=== PATIENT | female | born 1950 | race Caucasian/White ===

== ENCOUNTER 2018-07-15 11:13 | Inpatient (IN) | payer OTHER, MEDICARE ==
[2018-07-15 11:27] VITALS: BMI 23.8
--- NOTE | 2018-07-15 11:28 | PDOC ---
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 She tripped and fell. She states he does not know how it happened because it happened so fast She does note that she struck her head, no LOC, no amnesia Pt was able to crawl to her room where she fell between the bed and the night stand When the aid could not get in, she contacted a family member who called EMS Allergies: None Socal history: Former smoker. No alcohol. No illicit drugs. Surgical history: Appendectomy PMD: Dr. Darren Cervantes 07/15/18 11:54 ROS: GENERAL/CONSTITUTIONAL: No: fever, chills, weakness, loss of appetite. HEAD, EYES, EARS, NOSE AND THROAT: No: change in vision, ear pain, discharge, sore throat, throat swelling. CARDIOVASCULAR: No: chest pain, lightheadedness, palpitations, syncope RESPIRATORY: No: cough, shortness of breath, wheezing, hemoptysis, stridor. GASTROINTESTINAL: No: nausea, vomiting, diarrhea, abdominal cramping, rectal bleeding, constipation. GENITOURINARY: No: dysuria, hematuria, frequency, urgency, flank pain. MUSCULOSKELETAL: Yes: LEFT ANKLE PAIN No: back pain, neck pain, SKIN AND BREASTS: No: lesions, pallor, rash or easy bruising. NEUROLOGIC: No: headache, vertigo, paresthesias, weakness ENDOCRINE: No: unexplained weight gain or loss HEMATOLOGIC/LYMPHATIC: No: anemia, easy bleeding, swelling nodes. PE: GENERAL: The patient is in no acute distress. HEAD: Normal with no signs of trauma. EYES: PERRLA, EOMI, sclera anicteric, conjunctiva clear. ENT: Ears normal, nares patent, oropharynx clear without exudates. Moist mucous membranes. NECK: Normal range of motion, supple without lymphadenopathy, JVD, or masses. LUNGS: Breath sounds equal, clear to auscultation bilaterally. No wheezes, and no crackles. HEART:Regular rate and rhythm, normal S1 and S2 without murmur, rub or gallop. ABDOMEN: Soft, nontender, normoactive bowel sounds. No guarding, no rebound. No masses palpable. EXTREMITIES: bilateral malleolar tenderness, no bruising, no lacerations, minimal swelling 2+ DP, 2+ PT Pt sensation in tact Moving toes with no difficulty NEUROLOGICAL: Cranial nerves II through XII grossly intact. Normal speech. No focal neurological deficits. MUSCULOSKELETAL: Back non-tender to palpation, no CVA tenderness SKIN: Warm, Dry, normal turgor, no rashes or lesions noted. 07/15/18 12:01 07/17/18 08:20 Past History - Past Medical History Allergies/Adverse Reactions: Allergies Allergy/AdvReac Type Severity Reaction Status Date / Time No Known Allergies Allergy Verified 07/15/18 11:29 Home Medications: Ambulatory Orders Olmesartan/Hydrochlorothiazide [Benicar Hct 40-12.5MG Tab] 1 tab PO DAILY COPD: Yes HTN: Yes Liver Disease: Yes (HEP C-TREATED AND TESTS NEGATIVE NOW) - Surgical History Abdominal Surgery: Yes Appendectomy: Yes - Suicide/Smoking/Psychosocial Hx Smoking Status: No Smoking History: Unknown if ever smoked Have you smoked in the past 12 months: No Number of Cigarettes Smoked Daily: 0 Hx Alcohol Use: No Drug/Substance Use Hx: No Substance Use Type: Alcohol *Physical Exam - Vital Signs Last Vital Signs Temp Pulse Resp BP Pulse Ox 97.8 F 88 24 H 108/73 97 07/15/18 11:26 07/15/18 11:26 07/15/18 11:26 07/15/18 11:26 07/15/18 11:26 ED Treatment Course - LABORATORY CBC & Chemistry Diagram: 07/16/18 05:45 07/16/18 05:45 Medical Decision Making - Medical Decision Making 07/15/18 15:50 67 yo F presenting to the ER s/p fall from standing height this morning Left ankle pain Unable to ambulate independently since DD: ankle fracture, dislocation Will do: Labs EKG CT head/C spine Xray Re assess 07/15/18 15:53 Twelve-lead EKG was performed and reviewed by me. There is normal sinus rhythm with a normal rate. The axis is normal. The intervals are normal. There are no ST or T wave abnormalities. Impression: Normal twelve-lead EKG 07/15/18 17:18 Laboratory Tests 07/15/18 07/15/18 13:30 13:30 WBC 9.3 Hgb 12.4 Hct 36.7 Plt Count 250 D BUN 14 Creatinine 1.1 AST 184 H ALT 104 H Creatine Kinase 37 Troponin I < 0.02 Alcohol, Quantitative 205.5 H 07/15/18 17:19 CT head - no acute intracranial hemorrhade CT c spine - degenerative changes, no fracture or dislocation Xray - Proximal fibular fracture, fracture of tibia Case reviewed with Ortho (MEL hanson), recommends splint Splint applied by FREDERICK Rey and I No reduction performed S/p reduction, foot pink warm, moves toes Admitted to Dr Mena Alcohol level >200 Pt is tremulous Ordered for Librium clinical impression: Alcohol abuse Possible early withdrawal Ankle fracture, maisonneuve fracture 07/15/18 17:45 07/17/18 08:20 *DC/Admit/Observation/Transfer Diagnosis at time of Disposition: Alcohol abuse Alcohol withdrawal Qualifiers: Complication of substance-induced condition: uncomplicated Qualified Code(s): F10.230 - Alcohol dependence with withdrawal, uncomplicated Ankle fracture Qualifiers: Encounter type: initial encounter Fracture type: closed Laterality: left Qualified Code(s): S82.892A - Other fracture of left lower leg, initial encounter for closed fracture - Discharge Dispostion Condition at time of disposition: Stable Decision to Admit order: Yes - Referrals - Patient Instructions - Post Discharge Activity
[2018-07-15] MEDS ORDERED: SODIUM CHLORIDE 1,000 ML IV STA (12:10)
[2018-07-15] MEDS ORDERED: ACETAMINOPHEN 1000 MG/100 ML VIAL (NON FORMULARY) IVPB ONE (12:10)
[2018-07-15] MEDS ORDERED: morphine CARPU-JECT 4 MG/1 ML DISP.SYRIN IVPUSH ONE ×2 (12:44→15:31)
[2018-07-15 13:42] LABS: BASO % 0.4 % (0-2.0); EOS % 0.5 % (0-4.5); HEMATOCRIT 36.7 % (32.4-45.2); HEMOGLOBIN 12.4 GM/dL (10.7-15.3); LYMPH % 19.5 % (8-40); MCH 34.3 pg (25.7-33.7); MCHC 33.9 g/dl (32.0-36.0); MEAN CELL VOLUME 101.2 fl (80-96); MEAN PLT VOLUME 7.9 fl (7.5-11.1); MONO % 9.7 % (3.8-10.2); NEUT % 69.9 % (42.8-82.8); PLATELET COUNT 250 K/MM3 (134-434); RBC 3.62 M/mm3 (3.60-5.2); RDW 13.4 % (11.6-15.6); WHITE BLOOD COUNT 9.3 K/mm3 (4.0-10.0)
[2018-07-15 14:06] LABS: ALBUMIN 3.4 g/dl (3.4-5.0); ALK PHOS 74 U/L (45-117); ANION GAP 10 MMOL/L (8-16); BILIRUBIN,TOTAL 0.3 mg/dL (0.2-1); BLOOD UREA NITROGEN 14 mg/dL (7-18); CALCIUM 9.3 mg/dL (8.5-10.1); CHLORIDE 99 mmol/L (98-107); CO2 24 mmol/L (21-32); CREATININE 1.1 mg/dL (0.55-1.3); GLUCOSE,RANDOM 122 mg/dL (74-106); POTASSIUM 4.3 mmol/L (3.5-5.1); SGOT/AST 184 U/L (15-37); SGPT/ALT 104 U/L (13-61); SODIUM 134 mmol/L (136-145); TOT PROT 6.7 g/dl (6.4-8.2)
[2018-07-15] MEDS ORDERED: MORPHINE SULFATE 10 MG/1 ML *VIAL ONE (14:06)
[2018-07-15 14:07] LABS: PROTHROMBIN TIME (PATIENT) 11.8 SEC (9.7-13.0)
[2018-07-15] MEDS ORDERED: chlordiazePOXIDE HCL 25 MG CAPSULE PO ONE (14:25)
[2018-07-15] MEDS ORDERED: THIAMINE HCL 200 MG/2 ML VIAL IVPB ONE (14:29)
[2018-07-15] MEDS ORDERED: FOLIC ACID 1 MG TABLET (FP) PO ONE (14:32)
[2018-07-15] MEDS ORDERED: chlordiazePOXIDE HCL 25 MG CAPSULE ONE (14:40)
[2018-07-15] MEDS ORDERED: ONDANSETRON 4 MG/2 ML VIAL ONE ×2 (15:28→21:49)
[2018-07-15] MEDS ORDERED: ONDANSETRON 4 MG/2 ML VIAL IVPUSH ONE (15:31)
[2018-07-15] MEDS ORDERED: MORPHINE SULFATE 2 MG/ML VIAL ONE ×2 (15:32→22:42)
[2018-07-15] MEDS: D5-1/2NS+10 MEQ KCL - 10 MEQ/1,000 ML INFUS.BAG IV SCH (16:26)
[2018-07-15] MEDS ORDERED: MAG HYDROX/AL HYDROX/SIMETH 30 ML UNIT-DOSE CUP ONE (18:09)
[2018-07-15] MEDS ORDERED: MAG HYDROX/AL HYDROX/SIMETH 30 ML UNIT-DOSE CUP PO ONE (18:15)
[2018-07-15] MEDS ORDERED: LORazepam 2 MG/ML SDV VIAL ONE (18:27)
--- NOTE | 2018-07-15 19:11 | HP ---
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 patient tripped and fell, twisted Left LE developed sever pain , denies any head trauma, LOC, , couldn't walk so crawl to her room where she fell between the bed and the night stand When the aid could not get in, she contacted a family member who called EMS, on arrival alert but tremulous imaging shows spiral fracture proximal fibula and avulsion fracture left TIBIA splint allied, ETOH level elevated so admitted for possible ETOH intoxication/ withdrawal and management of fracture, no c/o chest pain , SOB, Palpitation, neck pain, denies abd pain, nausea or vomiting. History Source: Patient, Family Member - Past Medical History Cardiovascular: Yes: HTN - Smoking History Smoking history: Unknown if ever smoked Have you smoked in the past 12 months: No Aproximately how many cigarettes per day: 0 - Alcohol/Substance Use Hx Alcohol Use: Yes Home Medications - Allergies Allergies/Adverse Reactions: Allergies Allergy/AdvReac Type Severity Reaction Status Date / Time No Known Allergies Allergy Verified 07/15/18 11:29 - Home Medications Home Medications: Ambulatory Orders Olmesartan/Hydrochlorothiazide [Benicar Hct 40-12.5MG Tab] 1 tab PO DAILY Family Disease History - Family Disease History Family History: Unremarkable Review of Systems - Review of Systems Constitutional: denies: Chills, Diaphoresis, Fever, Lethargy, Loss of Appetite Eyes: denies: Blind Spots, Blurred Vision, Double Vision, Eye Pain HENT: denies: Difficult Swallowing, Ear Discharge Neck: denies: Decreased ROM, Lumps, Pain on Movement Cardiovascular: denies: Chest Pain, Edema, Palpitations, Shortness of Breath Respiratory: denies: Cough, Exercise Intolerance, Hemoptysis, Orthopnea Gastrointestinal: denies: Abdominal Pain, Bloating, Constipation Genitourinary: denies: Burning, Discharge, Dysuria Musculoskeletal: reports: Back Pain, Joint Swelling (Left LE) Endocrine: denies: Excessive Sweating, Flushing Pain Intensity: 5 Physical Examination Vital Signs: Vital Signs Temperature 97.4 F L 07/15/18 17:18 Pulse Rate 84 07/15/18 17:18 Respiratory Rate 20 07/15/18 17:18 Blood Pressure 104/62 07/15/18 17:18 O2 Sat by Pulse Oximetry (%) 97 07/15/18 11:26 Elderly F C/O Pain looks sleepy, HEENT: No external trauma, mm moist, no anemia, PERRLA, EOMI NECK; No JVd No Bruit, supple, CHEST: Non tender CTA B/L CVS; S1S2 R no m/g/r ABD: No distention, non tender Bs + EXT: Left Leg is in casra=t, toes sensation and circulation intact, Rt LE no swelling Pulses + CONSUMER ATTORNEY: tremlous, AOx3 non focal. Neurological: Yes: Oriented ...Motor Strength: LLE Labs: CBC, BMP 07/15/18 13:30 07/15/18 13:30 CBC,CMP WBC 9.3 K/mm3 (4.0-10.0) 07/15/18 13:30 RBC 3.62 M/mm3 (3.60-5.2) 07/15/18 13:30 Hgb 12.4 GM/dL (10.7-15.3) 07/15/18 13:30 Hct 36.7 % (32.4-45.2) 07/15/18 13:30 MCV 101.2 fl (80-96) H 07/15/18 13:30 MCH 34.3 pg (25.7-33.7) H 07/15/18 13:30 MCHC 33.9 g/dl (32.0-36.0) 07/15/18 13:30 RDW 13.4 % (11.6-15.6) 07/15/18 13:30 Plt Count 250 K/MM3 (134-434) D 07/15/18 13:30 MPV 7.9 fl (7.5-11.1) 07/15/18 13:30 Absolute Neuts (auto) 6.5 K/mm3 (1.5-8.0) 07/15/18 13:30 Neutrophils % 69.9 % (42.8-82.8) 07/15/18 13:30 Lymphocytes % 19.5 % (8-40) D 07/15/18 13:30 Monocytes % 9.7 % (3.8-10.2) 07/15/18 13:30 Eosinophils % 0.5 % (0-4.5) 07/15/18 13:30 Basophils % 0.4 % (0-2.0) 07/15/18 13:30 Nucleated RBC % 0 % (0-0) 07/15/18 13:30 Sodium 134 mmol/L (136-145) L 07/15/18 13:30 Potassium 4.3 mmol/L (3.5-5.1) 07/15/18 13:30 Chloride 99 mmol/L (98-107) 07/15/18 13:30 Carbon Dioxide 24 mmol/L (21-32) 07/15/18 13:30 Anion Gap 10 MMOL/L (8-16) 07/15/18 13:30 BUN 14 mg/dL (7-18) 07/15/18 13:30 Creatinine 1.1 mg/dL (0.55-1.3) 07/15/18 13:30 Creat Clearance w eGFR 49.39 (>60) 07/15/18 13:30 Random Glucose 122 mg/dL (74-106) H 07/15/18 13:30 Calcium 9.3 mg/dL (8.5-10.1) 07/15/18 13:30 Total Bilirubin 0.3 mg/dL (0.2-1) 07/15/18 13:30 AST 184 U/L (15-37) H 07/15/18 13:30 ALT 104 U/L (13-61) H 07/15/18 13:30 Alkaline Phosphatase 74 U/L (45-117) 07/15/18 13:30 Creatine Kinase 37 IU/L (26-192) 07/15/18 13:30 Troponin I < 0.02 ng/ml (0.00-0.05) 07/15/18 13:30 Total Protein 6.7 g/dl (6.4-8.2) 07/15/18 13:30 Albumin 3.4 g/dl (3.4-5.0) 07/15/18 13:30 Imaging - Results Chest X-ray: Report Reviewed (No infiltrates) Cat Scan: Report Reviewed (No acute changes) EKG: Report Reviewed ([address] chnages QTC 468) Other: Report Reviewed (C Spine: No Fracture Left LE: Left Leg Spiral fracture Left Tibia Avulsion fracture Left Tibiala Lower end) Problem List - Problems (1) Fracture, fibula, proximal Assessment/Plan: In casrat pain control ortho consult Code(s): S82.839A - OTH FRACTURE OF UPPER AND LOWER END OF UNSP FIBULA, INIT Qualifiers: Fracture type: closed Laterality: left (2) Avulsion fracture of lateral condyle of left tibia Assessment/Plan: Imobalised in cast pain control Code(s): S82.122A - DISP FX OF LATERAL CONDYLE OF LEFT TIBIA, INIT FOR CLOS FX Qualifiers: Fracture type: closed (3) Alcohol withdrawal Assessment/Plan: IV hydration, Thiamine, Folic acid Librium kasey col Code(s): F10.239 - ALCOHOL DEPENDENCE WITH WITHDRAWAL, UNSPECIFIED Qualifiers: Complication of substance-induced condition: uncomplicated Qualified Code(s ): F10.230 - Alcohol dependence with withdrawal, uncomplicated (4) Transaminitis Assessment/Plan: F/U LFTS Due to ETOH ause Code(s): R74.0 - NONSPEC ELEV OF LEVELS OF TRANSAMNS & LACTIC ACID DEHYDRGNSE (5) HTN (hypertension) Assessment/Plan: low BP hold CHRISTO Meds Code(s): I10 - ESSENTIAL (PRIMARY) HYPERTENSION (6) Hepatitis C Assessment/Plan: Treated in the past as per patient cured Code(s): B19.20 - UNSPECIFIED VIRAL HEPATITIS C WITHOUT HEPATIC COMA
[2018-07-15] MEDS: ONDANSETRON 4 MG/2 ML VIAL IVPUSH PRN (21:53)
[2018-07-15] MEDS ORDERED: LIDOCAINE 5% TOPICAL PATCH TP ONE (22:30)
[2018-07-15 22:36] LABS: MAGNESIUM 1.1 mg/dL (1.8-2.4)
[2018-07-15] MEDS ORDERED: chlordiazePOXIDE 5 MG CAPSULE ONE (22:42)
[2018-07-15] MEDS ORDERED: LIDOCAINE 5% TOPICAL PATCH ONE (22:43)
[2018-07-15] MEDS: MORPHINE SULFATE 2 MG/ML VIAL IVPUSH PRN (22:54)
--- NOTE | 2018-07-15 23:00 | EKG ---
Test Reason : Blood Pressure : / mmHG Vent. Rate : 085 BPM Atrial Rate : 085 BPM P-R Int : 126 ms QRS Dur : 064 ms QT Int : 394 ms P-R-T Axes : 061 060 061 degrees QTc Int : 468 ms NORMAL SINUS RHYTHM NORMAL ECG WHEN COMPARED WITH ECG OF 24-DEC-2017 17:49, NO SIGNIFICANT CHANGE WAS FOUND Confirmed by ALFONSO BROWN MD ([id number]) on 07/15/2018 10:59:45 PM Referred By: Confirmed By:ALFONSO BROWN MD
[2018-07-16] MEDS: chlordiazePOXIDE HCL 10 MG CAPSULE PO SCH ×2 (00:46→06:06)
[2018-07-16] MEDS ORDERED: chlordiazePOXIDE 5 MG CAPSULE ONE (05:59)
[2018-07-16] MEDS: ONDANSETRON 4 MG/2 ML VIAL IVPUSH PRN (06:05)
[2018-07-16] MEDS: D5-1/2NS+10 MEQ KCL - 10 MEQ/1,000 ML INFUS.BAG IV SCH ×2 (06:05→14:45)
[2018-07-16] MEDS: MORPHINE SULFATE 2 MG/ML VIAL IVPUSH PRN ×4 (06:05→21:14)
[2018-07-16 07:19] LABS: BASO % 0.2 % (0-2.0); HEMATOCRIT 34.1 % (32.4-45.2); HEMOGLOBIN 11.4 GM/dL (10.7-15.3); LYMPH % 9.6 % (8-40); MCHC 33.5 g/dl (32.0-36.0); MEAN CELL VOLUME 101.5 fl (80-96); MEAN PLT VOLUME 8.4 fl (7.5-11.1); MONO % 13.7 % (3.8-10.2); NEUT % 76.5 % (42.8-82.8); PLATELET COUNT 231 K/MM3 (134-434); RBC 3.36 M/mm3 (3.60-5.2); RDW 13.5 % (11.6-15.6); WHITE BLOOD COUNT 10.3 K/mm3 (4.0-10.0)
[2018-07-16] MEDS: THIAMINE HCL 100 MG TABLET (FP) PO SCH (09:43)
[2018-07-16] MEDS: VALSARTAN 160 MG TABLET (UD) PO SCH (09:44)
[2018-07-16] MEDS: HYDROCHLOROTHIAZIDE 12.5 MG CAPSULE (FP) PO SCH (09:44)
[2018-07-16 09:58] LABS: ALBUMIN 3.5 g/dl (3.4-5.0); ALK PHOS 66 U/L (45-117); ANION GAP 13 MMOL/L (8-16); BILIRUBIN,TOTAL 0.6 mg/dL (0.2-1); BLOOD UREA NITROGEN 21 mg/dL (7-18); CALCIUM 9.5 mg/dL (8.5-10.1); CHLORIDE 99 mmol/L (98-107); CO2 24 mmol/L (21-32); CREATININE 1.3 mg/dL (0.55-1.3); GLUCOSE,RANDOM 110 mg/dL (74-106); POTASSIUM 4.8 mmol/L (3.5-5.1); SGOT/AST 119 U/L (15-37); SGPT/ALT 92 U/L (13-61); SODIUM 136 mmol/L (136-145)
[2018-07-16] MEDS ORDERED: LIDOCAINE PATCH REMOVAL MC ONE (10:30)
--- NOTE | 2018-07-16 10:40 | CONSULT ---
Consult Consult Specialty:: orthopedics Reason for Consultation:: left ankle - History of Present Illness History of Present Illness: 67y/o female c/o left ankle and leg pain s/p fall yesterday. She came to the ER and was admitted. She has hx of ETOH abuse. The pain is worse with use of the leg and movement and better with rest. She denies any numbness or tingling. - History Source History Provided By: Patient, Medical Record - Past Medical History Cardio/Vascular: Yes: HTN - Alcohol/Substance Use Hx Alcohol Use: Yes - Smoking History Smoking history: Former smoker Have you smoked in the past 12 months: No Aproximately how many cigarettes per day: 0 Home Medications - Allergies Allergies/Adverse Reactions: Allergies Allergy/AdvReac Type Severity Reaction Status Date / Time No Known Allergies Allergy Verified 07/15/18 11:29 - Home Medications Home Medications: Ambulatory Orders Olmesartan/Hydrochlorothiazide [Benicar Hct 40-12.5MG Tab] 1 tab PO DAILY Review of Systems - Review of Systems Constitutional: reports: No Symptoms Eyes: reports: No Symptoms HENT: reports: No Symptoms Neck: reports: No Symptoms Cardiovascular: reports: No Symptoms Respiratory: reports: No Symptoms Gastrointestinal: reports: No Symptoms Genitourinary: reports: No Symptoms Breasts: reports: No Symptoms Reported Musculoskeletal: reports: Extremity Pain Integumentary: reports: No Symptoms Neurological: reports: No Symptoms Endocrine: reports: No Symptoms Hematology/Lymphatic: reports: No Symptoms Psychiatric: reports: No Symptoms Physical Exam Vital Signs: Vital Signs Temperature 98.3 F 07/16/18 03:30 Pulse Rate 118 H 07/16/18 03:30 Respiratory Rate 24 H 07/16/18 03:30 Blood Pressure 141/93 07/16/18 03:30 O2 Sat by Pulse Oximetry (%) 95 07/16/18 03:30 Constitutional: Yes: Well Nourished, No Distress, Calm HENT: Yes: Atraumatic, Normocephalic Musculoskeletal: Yes: Other (LLE: Short leg splint in place. DWAYNE wraps loosened a little as they were tight. NVID.) Labs: CBC, BMP 07/16/18 05:45 07/16/18 05:45 Imaging - Results X-ray: Report Reviewed, Image Reviewed (Medial malleolus and proximal fibula fx) Assessment/Plan Maisonneuve fracture, left ankle -Continue splint -Repeat x-rays of ankle for better assessment of fx -Pain control -Elevation -Follow up with Dr. Sy within 1 week in office.
[2018-07-16] MEDS: RANITIDINE HCL 150 MG TABLET (FP) PO SCH (11:25)
--- NOTE | 2018-07-16 11:31 | PN ---
Progress Note, Physician Chief Complaint: Still c/o Pain - Current Medication List Current Medications: Active Medications Chlordiazepoxide HCl (Librium -) 10 mg PO TID [facility] Hydrochlorothiazide (Hctz -) 12.5 mg PO DAILY [facility] Last Admin: 07/16/18 09:44 Dose: Not Given Potassium Chloride/Dextrose/Sod Cl (D5-1/2ns+10 Meq Kcl -) 10 meq in 1,000 mls @ 75 mls/hr IV ASDIR [facility] Last Admin: 07/16/18 06:05 Dose: 75 mls/hr Ibuprofen (Motrin -) 400 mg PO Q6H PRN PRN Reason: FEVER Morphine Sulfate (Morphine Sulfate) 2 mg IVPUSH Q4H PRN PRN Reason: PAIN LEVEL 6-10 Last Admin: 07/16/18 10:32 Dose: 2 mg Ondansetron HCl (Zofran Injection) 4 mg IVPUSH Q6H PRN PRN Reason: NAUSEA Last Admin: 07/16/18 06:05 Dose: 4 mg Ranitidine HCl (Zantac -) 150 mg PO DAILY [facility] Last Admin: 07/16/18 11:25 Dose: 150 mg Thiamine HCl (Vitamin B1 -) 100 mg PO DAILY [facility] Last Admin: 07/16/18 09:43 Dose: 100 mg Valsartan (Diovan -) 320 mg PO DAILY [facility] Last Admin: 07/16/18 09:44 Dose: Not Given - Objective Vital Signs: Vital Signs Temperature 98.3 F 07/16/18 03:30 Pulse Rate 118 H 07/16/18 03:30 Respiratory Rate 24 H 07/16/18 03:30 Blood Pressure 141/93 07/16/18 03:30 O2 Sat by Pulse Oximetry (%) 95 07/16/18 03:30 Elderly F C/O Pain HEENT: No external trauma, mm moist, no anemia, PERRLA, EOMI NECK; No JVd No Bruit, supple, CHEST: Non tender CTA B/L CVS; S1S2 R no m/g/r ABD: No distention, non tender Bs + EXT: Left Leg is in cast, toes sensation and circulation intact, Rt LE no swelling Pulses + ENDOSCOPY SPECIALTY TECHNICIAN:Less tremulous, AOx3 non focal. Labs: CBC, BMP 07/16/18 05:45 07/16/18 05:45 INR, PTT INR 1.00 (0.83-1.09) 07/15/18 13:30 Problem List - Problems (1) Fracture, fibula, proximal Assessment/Plan: In the cast evaluated by Ortho recommenced out patient F/U Code(s): S82.839A - OTH FRACTURE OF UPPER AND LOWER END OF UNSP FIBULA, INIT Qualifiers: Fracture type: closed Laterality: left (2) Avulsion fracture of lateral condyle of left tibia Assessment/Plan: Immobilized in cast pain control F/U Ortho recommondations Code(s): S82.122A - DISP FX OF LATERAL CONDYLE OF LEFT TIBIA, INIT FOR CLOS FX Qualifiers: Fracture type: closed (3) Alcohol withdrawal Assessment/Plan: IV hydration, Thiamine, Folic acid Librium protocol Code(s): F10.239 - ALCOHOL DEPENDENCE WITH WITHDRAWAL, UNSPECIFIED Qualifiers: Complication of substance-induced condition: uncomplicated Qualified Code(s ): F10.230 - Alcohol dependence with withdrawal, uncomplicated (4) Transaminitis Assessment/Plan: Improving trending down F/U LFTS Due to ETOH ause Code(s): R74.0 - NONSPEC ELEV OF LEVELS OF TRANSAMNS & LACTIC ACID DEHYDRGNSE (5) HTN (hypertension) Assessment/Plan: low BP hold CHRISTO Meds Code(s): I10 - ESSENTIAL (PRIMARY) HYPERTENSION (6) Hepatitis C Assessment/Plan: Treated in the past as per patient cured Code(s): B19.20 - UNSPECIFIED VIRAL HEPATITIS C WITHOUT HEPATIC COMA
[2018-07-16] MEDS ORDERED: ACETAMINOPHEN 1000 MG/100 ML VIAL (NON FORMULARY) IVPB ONE (12:23)
[2018-07-16] MEDS ORDERED: DOCUSATE SODIUM 100 MG CAPSULE (FP) PO PRN (12:25)
[2018-07-16] MEDS: ENOXAPARIN NA (PORCINE) 40 MG/0.4 ML DISP.SYRIN SQ SCH (12:46)
[2018-07-16] MEDS: chlordiazePOXIDE 5 MG CAPSULE PO SCH ×2 (13:37→21:13)
[2018-07-16 14:04] LABS: URINE APPEARANCE CLEAR; URINE BILIRUBIN NEGATIVE (<2.0 mg/dL); URINE COLOR AMBER; URINE GLUCOSE (UA) NEGATIVE (NEGATIVE); URINE KETONE NEGATIVE (NEGATIVE); URINE LEUK ESTERASE NEGATIVE (NEGATIVE); URINE NITRITE NEGATIVE (NEGATIVE); URINE PROTEIN NEGATIVE (NEGATIVE); URINE UROBILINOGEN NEGATIVE mg/dL (0.2-1.0)
[2018-07-16] MEDS ORDERED: PT OWN MED DRAWER 7, Y5N ONE (16:38)
[2018-07-16] MEDS: MAG HYDROX/AL HYDROX/SIMETH 30 ML UNIT-DOSE CUP PO PRN (17:00)
[2018-07-16] MEDS: LIDOCAINE 5% TOPICAL PATCH TP SCH (21:22)
[2018-07-17] MEDS: MORPHINE SULFATE 2 MG/ML VIAL IVPUSH PRN ×6 (01:04→21:06)
[2018-07-17] MEDS: chlordiazePOXIDE 5 MG CAPSULE PO SCH ×3 (05:40→21:06)
[2018-07-17] MEDS: HYDROCHLOROTHIAZIDE 12.5 MG CAPSULE (FP) PO SCH (09:48)
[2018-07-17] MEDS: ENOXAPARIN NA (PORCINE) 40 MG/0.4 ML DISP.SYRIN SQ SCH (09:48)
[2018-07-17] MEDS: THIAMINE HCL 100 MG TABLET (FP) PO SCH (09:54)
[2018-07-17] MEDS: VALSARTAN 160 MG TABLET (UD) PO SCH (09:54)
[2018-07-17] MEDS: LIDOCAINE PATCH REMOVAL MC SCH (09:54)
[2018-07-17] MEDS: RANITIDINE HCL 150 MG TABLET (FP) PO SCH (09:54)
[2018-07-17] MEDS: IBUPROFEN 400 MG TABLET (FP) PO PRN ×2 (11:01→17:13)
[2018-07-17] MEDS: MAG HYDROX/AL HYDROX/SIMETH 30 ML UNIT-DOSE CUP PO PRN (12:26)
--- NOTE | 2018-07-17 13:22 | PN ---
Progress Note, Physician Chief Complaint: Ms Vela says she is having pain in her leg. Denies cp, sob, n/v. - Current Medication List Current Medications: Active Medications Al Hydroxide/Mg Hydroxide (Mylanta Oral Suspension -) 30 ml PO Q6H PRN PRN Reason: DYSPEPSIA Last Admin: 07/17/18 12:26 Dose: 30 ml Chlordiazepoxide HCl (Librium -) 10 mg PO TID [facility] Last Admin: 07/17/18 05:40 Dose: 10 mg Docusate Sodium (Colace -) 100 mg PO BID PRN PRN Reason: CONSTIPATION Enoxaparin Sodium (Lovenox -) 40 mg SQ DAILY [facility] Last Admin: 07/17/18 09:48 Dose: 40 mg Hydrochlorothiazide (Hctz -) 12.5 mg PO DAILY [facility] Last Admin: 07/17/18 09:48 Dose: 12.5 mg Potassium Chloride/Dextrose/Sod Cl (D5-1/2ns+10 Meq Kcl -) 10 meq in 1,000 mls @ 75 mls/hr IV ASDIR [facility] Last Admin: 07/16/18 14:45 Dose: 75 mls/hr Ibuprofen (Motrin -) 400 mg PO Q6H PRN PRN Reason: FEVER Last Admin: 07/17/18 11:01 Dose: 400 mg Lidocaine (Lidoderm Patch -) 1 patch TP HS [facility] Last Admin: 07/16/18 21:22 Dose: 1 patch Miscellaneous (Lidoderm Patch Removal) 1 each MC DAILY@1000 [facility] Last Admin: 07/17/18 09:54 Dose: 1 each Morphine Sulfate (Morphine Sulfate) 2 mg IVPUSH Q4H PRN PRN Reason: PAIN LEVEL 6-10 Last Admin: 07/17/18 09:49 Dose: 2 mg Ondansetron HCl (Zofran Injection) 4 mg IVPUSH Q6H PRN PRN Reason: NAUSEA Last Admin: 07/16/18 06:05 Dose: 4 mg Ranitidine HCl (Zantac -) 150 mg PO DAILY [facility] Last Admin: 07/17/18 09:54 Dose: 150 mg Thiamine HCl (Vitamin B1 -) 100 mg PO DAILY [facility] Last Admin: 07/17/18 09:54 Dose: 100 mg Valsartan (Diovan -) 320 mg PO DAILY [facility] Last Admin: 07/17/18 09:54 Dose: 320 mg - Objective Vital Signs: Vital Signs Temperature 36.8 C 07/17/18 09:00 Pulse Rate 104 H 07/17/18 09:00 Respiratory Rate 18 07/17/18 09:00 Blood Pressure 134/75 07/17/18 09:00 O2 Sat by Pulse Oximetry (%) 99 07/17/18 09:00 Constitutional: Yes: Well Nourished, No Distress, Calm Cardiovascular: Yes: Regular Rate and Rhythm. No: Gallop, Murmur, Rub Respiratory: Yes: Regular, CTA Bilaterally. No: Rales, Rhonchi, Wheezes Gastrointestinal: Yes: Normal Bowel Sounds, Soft. No: Distention, Tenderness Extremities: Yes: Other (L leg in cast) Edema: No Labs: CBC, BMP 07/16/18 05:45 07/16/18 05:45 INR, PTT INR 1.00 (0.83-1.09) 07/15/18 13:30 Problem List - Problems (1) Alcohol abuse Assessment/Plan: -patient being counselled to stop drinking Code(s): F10.10 - ALCOHOL ABUSE, UNCOMPLICATED (2) Alcohol withdrawal Assessment/Plan: -continue librium tid currently -monitor Code(s): F10.239 - ALCOHOL DEPENDENCE WITH WITHDRAWAL, UNSPECIFIED Qualifiers: Complication of substance-induced condition: uncomplicated Qualified Code(s ): F10.230 - Alcohol dependence with withdrawal, uncomplicated (3) Avulsion fracture of lateral condyle of left tibia Assessment/Plan: -secondary to fall -ortho consulted and following -leg in cast -pain control -PT consult Code(s): S82.122A - DISP FX OF LATERAL CONDYLE OF LEFT TIBIA, INIT FOR CLOS FX Qualifiers: Fracture type: closed (4) HTN (hypertension) Assessment/Plan: -well controlled -continue diovan and HCTZ Code(s): I10 - ESSENTIAL (PRIMARY) HYPERTENSION (5) Hepatitis C Assessment/Plan: -noted Code(s): B19.20 - UNSPECIFIED VIRAL HEPATITIS C WITHOUT HEPATIC COMA Qualifiers: Viral hepatitis chronicity: chronic
[2018-07-17] MEDS: D5-1/2NS+10 MEQ KCL - 10 MEQ/1,000 ML INFUS.BAG IV SCH (13:47)
[2018-07-17] MEDS: LIDOCAINE 5% TOPICAL PATCH TP SCH (21:07)
[2018-07-18] MEDS: MORPHINE SULFATE 2 MG/ML VIAL IVPUSH PRN ×4 (00:34→13:13)
[2018-07-18 06:47] LABS: BASO % 0.7 % (0-2.0); EOS % 3.7 % (0-4.5); HEMATOCRIT 32.2 % (32.4-45.2); HEMOGLOBIN 10.7 GM/dL (10.7-15.3); LYMPH % 26.7 % (8-40); MCHC 33.3 g/dl (32.0-36.0); MEAN CELL VOLUME 102.2 fl (80-96); MEAN PLT VOLUME 8.5 fl (7.5-11.1); MONO % 14.9 % (3.8-10.2); PLATELET COUNT 172 K/MM3 (134-434); RBC 3.15 M/mm3 (3.60-5.2); RDW 13.2 % (11.6-15.6); WHITE BLOOD COUNT 5.5 K/mm3 (4.0-10.0)
[2018-07-18] MEDS: chlordiazePOXIDE 5 MG CAPSULE PO SCH ×3 (07:08→21:05)
[2018-07-18 07:12] LABS: ANION GAP 6 MMOL/L (8-16); BLOOD UREA NITROGEN 10 mg/dL (7-18); CALCIUM 8.8 mg/dL (8.5-10.1); CHLORIDE 105 mmol/L (98-107); CO2 27 mmol/L (21-32); CREATININE 0.8 mg/dL (0.55-1.3); GLUCOSE,RANDOM 94 mg/dL (74-106); MAGNESIUM 1.6 mg/dL (1.8-2.4); PHOSPHOROUS 2.1 mg/dL (2.5-4.9); POTASSIUM 5.8 mmol/L (3.5-5.1); SODIUM 137 mmol/L (136-145)
[2018-07-18] MEDS: IBUPROFEN 400 MG TABLET (FP) PO PRN (08:04)
[2018-07-18] MEDS: RANITIDINE HCL 150 MG TABLET (FP) PO SCH (09:18)
[2018-07-18] MEDS: HYDROCHLOROTHIAZIDE 12.5 MG CAPSULE (FP) PO SCH (09:18)
[2018-07-18] MEDS: THIAMINE HCL 100 MG TABLET (FP) PO SCH (09:18)
[2018-07-18] MEDS: VALSARTAN 160 MG TABLET (UD) PO SCH (09:19)
[2018-07-18] MEDS: ENOXAPARIN NA (PORCINE) 40 MG/0.4 ML DISP.SYRIN SQ SCH (09:19)
[2018-07-18] MEDS: LIDOCAINE PATCH REMOVAL MC SCH (09:19)
--- NOTE | 2018-07-18 10:02 | PN ---
Progress Note (short form) - Note Progress Note: Patient seen lying comfortably in bed. Notes her ankle pain is well controlled. No new complains. Physical examination: The patient is afebrile and vital signs are stable. Examination of the left lower knee demonstrates a splint in place. The splint is removed partially to allow visualization of the skin. There is moderate diffuse swelling. There are no distinct skin lesions. Sensation is grossly intact light touch. She is able to dorsiflex and plantar flex the toes. 2+ DP pulse. Radiographs: There is a Maisonneuve fracture with a displaced medial malleolar fracture mild residual lateral translation of the talus. Assessment: Left Maisonneuve fracture Plan: I reviewed with Mohsen that there is an ankle fracture present. We discussed that ankle fractures come in many degrees of injury, affecting various bony parts and ligaments throughout the ankle and to different degrees. The number of bones and ligaments injured, the particular areas injured and amount of damage can create widely varying recovery times. This type of fracture pattern is considered unstable and therefore is typically treated operatively. This allows the ankle to be placed back in anatomic alignment and help prevent post traumatic arthritis. I reviewed the option of nonoperative care. This can result in malunion and lead to more arthritis in the future. We reviewed the surgery and fracture healing in detail. I discussed that orthopedic hardware does not cure a fracture. Rather, the plate and screws used can be thought of as a scaffold which holds the bone together as the body heals itself. Sometimes the syndesmotic ligaments are injured at the same time , requiring additional fixation and longer recovery time. I discussed that proper alignment and strong stability are factors that will promote bone healing. That being said, surgery does not guarantee the bones will heal. Sometimes surgery can result in malunion (poor bone alignment) or nonunion ( bone not healing). Other surgical risks include bleeding, infection, neurovascular injury, postoperative pain, stiffness or limited function, need for further surgery. The are medical risks such as heart attack, stroke, DVT, PE and . We reviewed the recovery from surgery including postoperative casting and then bracing. While outcomes are generally good following this surgery, many people feel the ankle is never quite as good as it was prior to the injury. I addressed Mohsen's questions. The plan at this time is to proceed surgically. The leg should be elevated until the procedure to minimize swelling. NSAIDs can be useful for pain and swelling too. No pressure should be put on the leg. She can work with a physical therapist to improve her mobility. We will plan for surgery tentatively we to allow for resolution of her swelling. She is stable for DC to a SNF in the meantime. She will plan to follow up on Tuesday for a swelling check. The patient voiced understanding and improvement with the plan.
[2018-07-18 13:32] LABS: ANION GAP 4 MMOL/L (8-16); BLOOD UREA NITROGEN 9 mg/dL (7-18); CALCIUM 8.3 mg/dL (8.5-10.1); CHLORIDE 102 mmol/L (98-107); CO2 31 mmol/L (21-32); CREATININE 0.7 mg/dL (0.55-1.3); GLUCOSE,RANDOM 82 mg/dL (74-106); POTASSIUM 4.6 mmol/L (3.5-5.1); SODIUM 136 mmol/L (136-145)
--- NOTE | 2018-07-18 15:30 | PN ---
Progress Note, Physician Chief Complaint: Ms Vela is still having pain in her L ankle. No cp, sob, n/v. - Current Medication List Current Medications: Active Medications Al Hydroxide/Mg Hydroxide (Mylanta Oral Suspension -) 30 ml PO Q6H PRN PRN Reason: DYSPEPSIA Last Admin: 07/17/18 12:26 Dose: 30 ml Chlordiazepoxide HCl (Librium -) 10 mg PO TID [facility] Last Admin: 07/18/18 13:13 Dose: 10 mg Docusate Sodium (Colace -) 100 mg PO BID PRN PRN Reason: CONSTIPATION Enoxaparin Sodium (Lovenox -) 40 mg SQ DAILY [facility] Last Admin: 07/18/18 09:19 Dose: 40 mg Hydrochlorothiazide (Hctz -) 12.5 mg PO DAILY [facility] Last Admin: 07/18/18 09:18 Dose: 12.5 mg Ibuprofen (Motrin -) 400 mg PO Q6H PRN PRN Reason: FEVER Last Admin: 07/18/18 08:04 Dose: 400 mg Lidocaine (Lidoderm Patch -) 1 patch TP HS [facility] Last Admin: 07/17/18 21:07 Dose: 1 patch Miscellaneous (Lidoderm Patch Removal) 1 each MC DAILY@1000 [facility] Last Admin: 07/18/18 09:19 Dose: 1 each Ondansetron HCl (Zofran Injection) 4 mg IVPUSH Q6H PRN PRN Reason: NAUSEA Last Admin: 07/16/18 06:05 Dose: 4 mg Oxycodone HCl (Roxicodone -) 10 mg PO Q4H PRN PRN Reason: PAIN LEVEL 6-10 Ranitidine HCl (Zantac -) 150 mg PO DAILY [facility] Last Admin: 07/18/18 09:18 Dose: 150 mg Thiamine HCl (Vitamin B1 -) 100 mg PO DAILY [facility] Last Admin: 07/18/18 09:18 Dose: 100 mg Valsartan (Diovan -) 320 mg PO DAILY [facility] Last Admin: 07/18/18 09:19 Dose: 320 mg - Objective Vital Signs: Vital Signs Temperature 36.6 C 07/18/18 14:00 Pulse Rate 94 H 07/18/18 14:00 Respiratory Rate 20 07/18/18 14:00 Blood Pressure 80/50 L 07/18/18 14:00 O2 Sat by Pulse Oximetry (%) 97 10/02/18 09:00 Constitutional: Yes: Well Nourished, No Distress, Calm Cardiovascular: Yes: Regular Rate and Rhythm. No: Gallop, Murmur, Rub Respiratory: Yes: Regular, CTA Bilaterally. No: Rales, Rhonchi, Wheezes Gastrointestinal: Yes: Normal Bowel Sounds, Soft. No: Distention, Tenderness Extremities: Yes: WNL Edema: No Labs: CBC, BMP 07/18/18 05:30 07/18/18 12:42 INR, PTT INR 1.00 (0.83-1.09) 07/15/18 13:30 Problem List - Problems (1) Alcohol abuse Code(s): F10.10 - ALCOHOL ABUSE, UNCOMPLICATED (2) Alcohol withdrawal Code(s): F10.239 - ALCOHOL DEPENDENCE WITH WITHDRAWAL, UNSPECIFIED Qualifiers: Complication of substance-induced condition: uncomplicated Qualified Code(s ): F10.230 - Alcohol dependence with withdrawal, uncomplicated (3) Avulsion fracture of lateral condyle of left tibia Code(s): S82.122A - DISP FX OF LATERAL CONDYLE OF LEFT TIBIA, INIT FOR CLOS FX Qualifiers: Fracture type: closed (4) HTN (hypertension) Code(s): I10 - ESSENTIAL (PRIMARY) HYPERTENSION (5) Hepatitis C Code(s): B19.20 - UNSPECIFIED VIRAL HEPATITIS C WITHOUT HEPATIC COMA Qualifiers: Viral hepatitis chronicity: chronic Assessment/Plan (1) Alcohol abuse Assessment/Plan: -patient being counselled to stop drinking Code(s): F10.10 - ALCOHOL ABUSE, UNCOMPLICATED (2) Alcohol withdrawal Assessment/Plan: -continue librium tid currently -monitor -can stop tomorrow Code(s): F10.239 - ALCOHOL DEPENDENCE WITH WITHDRAWAL, UNSPECIFIED Qualifiers: Complication of substance-induced condition: uncomplicated Qualified Code(s ): F10.230 - Alcohol dependence with withdrawal, uncomplicated (3) Avulsion fracture of lateral condyle of left tibia Assessment/Plan: -ortho recommendation reviewed -will change to oxycodone in anticipation of discharge -plan to discharge to SNF and return as outpatient for surgery Code(s): S82.122A - DISP FX OF LATERAL CONDYLE OF LEFT TIBIA, INIT FOR CLOS FX Qualifiers: Fracture type: closed (4) HTN (hypertension) Assessment/Plan: -well controlled -continue diovan and HCTZ Code(s): I10 - ESSENTIAL (PRIMARY) HYPERTENSION (5) Hepatitis C Assessment/Plan: -noted Code(s): B19.20 - UNSPECIFIED VIRAL HEPATITIS C WITHOUT HEPATIC COMA Qualifiers: Viral hepatitis chronicity: chronic
[2018-07-18] MEDS: oxyCODONE HCL 5 MG TABLET PO PRN (17:35)
[2018-07-18] MEDS ORDERED: MORPHINE SULFATE 2 MG/ML VIAL IVPUSH ONE (20:39)
[2018-07-18] MEDS: LIDOCAINE 5% TOPICAL PATCH TP SCH (21:06)
[2018-07-19] MEDS: oxyCODONE HCL 5 MG TABLET PO PRN ×4 (02:33→18:40)
[2018-07-19] MEDS: chlordiazePOXIDE 5 MG CAPSULE PO SCH ×3 (05:30→21:21)
[2018-07-19 07:56] LABS: BASO % 0.7 % (0-2.0); EOS % 2.8 % (0-4.5); HEMOGLOBIN 11.4 GM/dL (10.7-15.3); LYMPH % 28.7 % (8-40); MCHC 33.4 g/dl (32.0-36.0); MEAN CELL VOLUME 101.9 fl (80-96); MEAN PLT VOLUME 8.5 fl (7.5-11.1); MONO % 14.9 % (3.8-10.2); NEUT % 52.9 % (42.8-82.8); PLATELET COUNT 235 K/MM3 (134-434); RBC 3.34 M/mm3 (3.60-5.2); RDW 13.2 % (11.6-15.6); WHITE BLOOD COUNT 7.8 K/mm3 (4.0-10.0)
[2018-07-19 08:32] LABS: ANION GAP 8 MMOL/L (8-16); BLOOD UREA NITROGEN 8 mg/dL (7-18); CALCIUM 8.9 mg/dL (8.5-10.1); CHLORIDE 99 mmol/L (98-107); CO2 27 mmol/L (21-32); CREATININE 0.8 mg/dL (0.55-1.3); GLUCOSE,RANDOM 80 mg/dL (74-106); MAGNESIUM 1.6 mg/dL (1.8-2.4); PHOSPHOROUS 3.4 mg/dL (2.5-4.9); POTASSIUM 4.3 mmol/L (3.5-5.1); SODIUM 134 mmol/L (136-145)
[2018-07-19] MEDS: HYDROCHLOROTHIAZIDE 12.5 MG CAPSULE (FP) PO SCH (10:31)
[2018-07-19] MEDS: ENOXAPARIN NA (PORCINE) 40 MG/0.4 ML DISP.SYRIN SQ SCH (10:31)
[2018-07-19] MEDS: VALSARTAN 160 MG TABLET (UD) PO SCH (10:31)
[2018-07-19] MEDS: RANITIDINE HCL 150 MG TABLET (FP) PO SCH (10:31)
[2018-07-19] MEDS: THIAMINE HCL 100 MG TABLET (FP) PO SCH (10:31)
[2018-07-19] MEDS: LIDOCAINE PATCH REMOVAL MC SCH (10:32)
[2018-07-19] MEDS: IBUPROFEN 400 MG TABLET (FP) PO PRN ×2 (10:36→18:39)
[2018-07-19] MEDS: MAG HYDROX/AL HYDROX/SIMETH 30 ML UNIT-DOSE CUP PO PRN (14:22)
--- NOTE | 2018-07-19 15:31 | DS ---
Physical Examination Vital Signs: Vital Signs Temperature 37.1 C 07/19/18 15:00 Pulse Rate 103 H 07/19/18 15:00 Respiratory Rate 18 07/19/18 09:00 Blood Pressure 124/81 07/19/18 15:00 O2 Sat by Pulse Oximetry (%) 96 07/19/18 09:00 Constitutional: Yes: Well Nourished, No Distress, Calm Cardiovascular: Yes: Regular Rate and Rhythm. No: Gallop, Murmur, Rub Respiratory: Yes: Regular, CTA Bilaterally. No: Rales, Rhonchi, Wheezes Gastrointestinal: Yes: Normal Bowel Sounds, Soft. No: Distention, Tenderness Extremities: Yes: WNL Edema: No Labs: CBC, BMP 07/19/18 06:30 07/19/18 06:30 Discharge Summary Reason For Visit: ALCOHOL ABUSE, FX OF LT ANKLE Current Active Problems Alcohol abuse (Acute) Alcohol withdrawal (Acute) Ankle fracture (Acute) Avulsion fracture of lateral condyle of left tibia (Acute) Fracture, fibula, proximal (Acute) HTN (hypertension) (Acute) Hepatitis C (Acute) Transaminitis (Acute) Hospital Course: (1) Alcohol abuse Code(s): F10.10 - ALCOHOL ABUSE, UNCOMPLICATED (2) Alcohol withdrawal Code(s): F10.239 - ALCOHOL DEPENDENCE WITH WITHDRAWAL, UNSPECIFIED Qualifiers: Complication of substance-induced condition: uncomplicated Qualified Code(s ): F10.230 - Alcohol dependence with withdrawal, uncomplicated (3) Avulsion fracture of lateral condyle of left tibia Code(s): S82.122A - DISP FX OF LATERAL CONDYLE OF LEFT TIBIA, INIT FOR CLOS FX Qualifiers: Fracture type: closed (4) HTN (hypertension) Code(s): I10 - ESSENTIAL (PRIMARY) HYPERTENSION (5) Hepatitis C Code(s): B19.20 - UNSPECIFIED VIRAL HEPATITIS C WITHOUT HEPATIC COMA Qualifiers: Viral hepatitis chronicity: chronic Ms Vela is a 67 year old female who presented after mechanical fall resulting in avulsion fracture of left tibia after alcohol consumption. She was admitted to telemetry and had uncomplicated alcohol withdrawal. She was treated with librium with proper response. She should continue for 2 more days on librium. She was seen by orthopedic surgery and recommended to go to SNF for healing and present for evaluation for surgical intervention after swelling went down. She is currently stable for discharge to SNF with below medications. 31 minutes spent in preparation of this discharge Condition: Stable - Instructions Diet, Activity, Other Instructions: regular diet. Up with assistance, further activity per PT at SNF. Referrals: Robbie Sy MD [Staff Physician] - Eusebio Cervantes MD [Primary Care Provider] - Disposition: NURSING HOME FACILITY - Home Medications Comprehensive Discharge Medication List: Ambulatory Orders Olmesartan/Hydrochlorothiazide [Benicar Hct 40-12.5MG Tab -] 1 tab PO DAILY 08/03 Chlordiazepoxide [Librium -] 10 mg PO TID 2 Days capsule MDD 30mg 07/19/18 Docusate Sodium [Colace -] 100 mg PO BID PRN capsule 07/19/18 Enoxaparin [Lovenox -] 40 mg SQ DAILY disp.syrin 07/19/18 Ibuprofen [Motrin -] 400 mg PO Q6H PRN tablet 07/19/18 Lidocaine 5% Patch [Lidoderm -] 1 patch TP HS patch 07/19/18 Lidocaine Patch Removal [Lidoderm Patch Removal] 1 each MC DAILY@1000 each 01/01 Mag Hydrox/Al Hydrox/Simeth [Mylanta Oral Suspension -] 30 ml PO Q6H PRN cup Ranitidine [Zantac -] 150 mg PO DAILY tablet 07/19/18 Thiamine HCl [Vitamin B1 -] 100 mg PO DAILY tablet 07/19/18 oxyCODONE HCL [Roxicodone -] 10 mg PO Q6H PRN tablet MDD 40mg 07/19/18
[2018-07-19] MEDS ORDERED: IBUPROFEN 400 MG TABLET (FP) PO PRN (20:33)
[2018-07-19] MEDS ORDERED: DOCUSATE SODIUM 100 MG CAPSULE (FP) PO PRN (20:33)
[2018-07-19] MEDS ORDERED: LIDOCAINE PATCH REMOVAL MC SCH ×2 (20:33→22:00)
[2018-07-19] MEDS ORDERED: ONDANSETRON 4 MG/2 ML VIAL IVPUSH PRN (20:33)
[2018-07-19] MEDS ORDERED: MAG HYDROX/AL HYDROX/SIMETH 30 ML UNIT-DOSE CUP PO PRN (20:33)
[2018-07-19] MEDS ORDERED: LIDOCAINE 5% TOPICAL PATCH TP SCH (22:00)
[2018-07-20] MEDS: oxyCODONE HCL 5 MG TABLET PO PRN ×2 (02:00→10:50)
[2018-07-20] MEDS: chlordiazePOXIDE 5 MG CAPSULE PO SCH ×2 (06:07→14:36)
[2018-07-20] MEDS ORDERED: PT OWN MED DRAWER 7, Y5N ONE (09:49)
[2018-07-20 09:59] VITALS: BP 149/81; PULSE 100; TEMP 98.3
[2018-07-20] MEDS ORDERED: RANITIDINE HCL 150 MG TABLET (FP) PO SCH (10:00)
[2018-07-20] MEDS ORDERED: VALSARTAN 160 MG TABLET (UD) PO SCH (10:00)
[2018-07-20] MEDS ORDERED: ENOXAPARIN NA (PORCINE) 40 MG/0.4 ML DISP.SYRIN SQ SCH (10:00)
[2018-07-20] MEDS ORDERED: THIAMINE HCL 100 MG TABLET (FP) PO SCH (10:00)
[2018-07-20] MEDS ORDERED: HYDROCHLOROTHIAZIDE 12.5 MG CAPSULE (FP) PO SCH (10:00)
[2018-07-20] MEDS ORDERED: LIDOCAINE PATCH REMOVAL MC SCH (10:00)
== END 2018-07-20 15:40 | DRG 563 ==
LOC: JER 11:13 → JERBED 14:27 → J4W 07-16 04:00 → J6S 07-18 18:30
PROVIDERS: ADMIT Internal Medicine; ATTEND Internal Medicine
DX: S82.862A Displaced Maisonneuve's fracture of left leg, initial encounter for closed fracture (principal); F10.239 Alcohol dependence with withdrawal, unspecified; S82.122A Displaced fracture of lateral condyle of left tibia, initial encounter for closed fracture; S82.445A Nondisplaced spiral fracture of shaft of left fibula, initial encounter for closed fracture; I10 Essential (primary) hypertension; Z87.891 Personal history of nicotine dependence; J44.9 Chronic obstructive pulmonary disease, unspecified; B19.20 Unspecified viral hepatitis C without hepatic coma; R74.0 Nonspecific elevation of levels of transaminase and lactic acid dehydrogenase [LDH]
CPT/HCPCS: 36415; 70450-TC; 71045-TC-FY; 72125-TC; 73590-TC-LT-FY; 73610-TC-LT-FY; 73630-TC-LT; 80048; 80053; 80307; 81003; 82550; 83735; 84100; 84484; 85025; 85610; 87040; 87086; 93005; 93010; 97116-GP; 97161-GP; 99282-25; 99285-25; J0131

== ENCOUNTER 2018-08-03 20:29 | Day surgery (SDC) | payer OTHER, MEDICARE ==
[2018-08-02 13:42] VITALS: BMI 24.7
--- NOTE | 2018-08-03 18:45 | OP ---
Operative Note - Note: Operative Date: 08/03/18 Pre-Operative Diagnosis: Left maisonneuve fracture Operation: left ankle open reduction internal fixation Implants: arthrex tight rope x2. 4.0 cannulated screws x2 Post-Operative Diagnosis: Same as Pre-op Surgeon: Robbie Sy Hothouse Worker: Denae Vaughan Anesthesia: Fractional
[~2018-08-03 20:29] MED LIST: ACETAMINOPHEN 325 MG TABLET (FP) PO PRN; BUPIVACAINE HCL/PF (5 MG/ML) 30 ML VIAL IJ ONE; DEXAMETHASONE SOD PHOSPHATE 4 MG/1 ML VIAL ONE; DEXAMETHASONE SOD PHOSPHATE/PF 10 MG/ML SDV ONE; DOCUSATE SODIUM 100 MG CAPSULE (FP) PO PRN; MAG HYDROX/AL HYDROX/SIMETH 30 ML UNIT-DOSE CUP PO PRN; MIDAZOLAM HCL 2 MG/2 ML SINGLE DOSE VIAL ONE; ONDANSETRON 4 MG/2 ML VIAL IVPUSH PRN; ONDANSETRON 4 MG/2 ML VIAL ONE; PHENYLEPHRINE HCL 10 MG/1 ML SINGLE DOSE VIAL ONE; PROPOFOL 20 ML ONE; SODIUM CHLORIDE 0.9% P/F 10 ML VIAL IJ ONE; oxyCODONE HCL 5 MG TABLET ONE; oxyCODONE HCL 5 MG TABLET PO PRN
[2018-08-03] MEDS ORDERED: chlordiazePOXIDE HCL 10 MG CAPSULE PO SCH (22:00)
[2018-08-03] MEDS ORDERED: chlordiazePOXIDE 5 MG CAPSULE PO SCH (22:00)
[2018-08-03] MEDS ORDERED: LIDOCAINE PATCH REMOVAL MC SCH (22:00)
[2018-08-03] MEDS ORDERED: RANITIDINE HCL 150 MG TABLET (FP) PO SCH (22:00)
[2018-08-03] MEDS ORDERED: [UNRECOGNIZED DRUG - OTHER] VG SCH (22:00)
[2018-08-04] MEDS: CEFAZOLIN 1 GM in DEXTROSE 5%-WATER - 50 ML IVPB SCH ×2 (01:42→09:24)
--- NOTE | 2018-08-04 06:52 | OP ---
DATE OF OPERATION: 08/03/2018 PREOPERATIVE DIAGNOSIS: Left Maisonneuve fracture. POSTOPERATIVE DIAGNOSIS: Left Maisonneuve fracture. PROCEDURE: Left ankle open reduction, internal fixation. SURGEON: Robbie Epstein M.D. HOTEL HOUSEKEEPER: Denae Vaughan, physician intellectual property legal assistant, whose skillful assistance was necessary for safe performance of this procedure. Denae was able to help provide positioning, retraction, assisted with fracture reduction and the insertion of orthopedic hardware. IMPLANTS: Include Arthrex 4.0 cannulated screws as well as Tightropes x2. POSTOPERATIVE CONDITION: Stable. INDICATION: This is a pleasant woman who suffered a Maisonneuve-type fracture. Initially she was splinted and casted to allow for resolution of the swelling. After resolution of swelling, she was indicated for operative care. Discussed the option of nonoperative care with nonanatomic alignment, postoperative instability and posttraumatic arthrosis. Reviewed operative risks in detail including bleeding, infection, neurovascular injury, need for further surgery, postoperative pain and stiffness, nonunion, malunion, hardware cutout or failure. We reviewed medical risks such as heart attack, stroke, DVT, PE, or . I addressed all the patient's questions and concerns. She voiced understanding and elected to proceed. DESCRIPTION OF PROCEDURE: The patient was brought to the operating room after administration of a regional block in the preoperative holding area. The patient's left lower extremity was prepped and draped in the usual sterile fashion. A perioperative dose of antibiotics was given, and the usual timeout procedure was performed. The initial attention was turned medially. A curvilinear incision was made over the medial malleolus. This was carried down through skin and subcutaneous tissue. The saphenous bundle was protected. The fracture site was now identified. Any soft callus was debrided. It should be noted there was significant comminution along the medial side. The fracture was now reduced and held in place using a fracture reduction forceps. Two K-wires from the 4.0 cannulated set were inserted. The guidewire placement was confirmed fluoroscopically in 2 planes. The guidewires were then overdrilled just on the near cortex, and two 40-mm screws were inserted. The screw placement was confirmed both visually and fluoroscopically, and both were satisfactory. The attention was now turned laterally. Incision was made over the distal fibula. This was carried out with dissection bluntly down to the level of the bone. Two guidewires were passed for Tightropes and the overdrilled. Both tightropes were deployed, visualizing directly through the medial incision where the buttons penetrated through. Both were toggled and this reduced the syndesmosis. The radiographs were now repeated with the fluoroscope, and now the mortice was reduced in addition to the medial malleolus. At this point, the entire construct was examined one more time both visually and fluoroscopically, and both fracture reduction and hardware placement were satisfactory. The wounds were copiously irrigated. The deep tissue was approximated using 2-0 Vicryl. The subcutaneous tissue was approximated using 2-0 Vicryl. The skin was closed using 3-0 nylon. Sterile dressings were placed. The patient was placed in a well padded cast. She was extubated and transferred to recovery room in stable condition. It should be noted that the tourniquet was inflated prior to the incision then let down just after dressing placement after approximately an hour and 20 minutes. ROBBIE EPSTEIN M.D. [id number]
[2018-08-04] MEDS: oxyCODONE HCL 5 MG TABLET PO PRN ×2 (09:25→15:21)
[2018-08-04] MEDS ORDERED: HYDROCHLOROTHIAZIDE 12.5 MG CAPSULE (FP) PO SCH (10:00)
[2018-08-04] MEDS ORDERED: VALSARTAN 160 MG TABLET (UD) PO SCH (10:00)
[2018-08-04] MEDS ORDERED: LIDOCAINE 5% TOPICAL PATCH TP SCH (10:00)
[2018-08-04] MEDS ORDERED: ENOXAPARIN NA (PORCINE) 40 MG/0.4 ML DISP.SYRIN SQ SCH (10:00)
[2018-08-04] MEDS ORDERED: THIAMINE HCL 100 MG TABLET (FP) PO SCH (10:00)
[2018-08-04] MEDS ORDERED: PATIENT'S OWN MEDICATION (NON-FORMULARY) (Olmesartan/Hydrochlorothiazide [Benicar Hct 40-1 PO SCH (10:00)
[2018-08-04] MEDS ORDERED: chlordiazePOXIDE 5 MG CAPSULE PO SCH (10:00)
--- NOTE | 2018-08-04 10:34 | SURG ---
Surgery Applications Administrator Note Applications Administrator: Denae Vaughan PA-C Date of Service: 08/04/18 Diagnosis: Left maisonneuve fracture Procedure: left ankle open reduction internal fixation I was present for the entirety of the operative procedure. For further detail, please refer to operative report. Visit type - Case Type Case Type: Scheduled - Emergency Emergency Visit: No - New patient This patient is new to me today: Yes Date on this admission: 08/04/18
[2018-08-04 13:01] VITALS: BP 96/44; PULSE 106; TEMP 97.4
[2018-08-04] MEDS: LACTATED RINGERS SOLUTION 1,000 ML IV SCH ×2 (15:21→15:22)
== END 2018-08-04 15:58 | disposition home or self-care (01) ==
LOC: FM/S 20:29 → FASUSAT 20:29
PROVIDERS: ATTEND Orthopaedic Surgery Sports Medicine
PROC: 0SSG04Z Reposition Left Ankle Joint with Internal Fixation Device, Open Approach (ICD-10-PCS; principal; 2018-08-03 17:02)
DX: S82.862A Displaced Maisonneuve's fracture of left leg, initial encounter for closed fracture (principal); X58.XXXA Exposure to other specified factors, initial encounter; Y93.9 Activity, unspecified; Y92.9 Unspecified place or not applicable
CPT/HCPCS: 73610-TC-LT-FY; 76001-TC-FY; 94760

== ENCOUNTER 2020-06-17 04:52 | Day surgery (SDC) | payer OTHER, MEDICARE ==
[2020-06-13 16:25] VITALS: BMI 23.8
[2020-06-17] MEDS ORDERED: LIDOCAINE HCL 2% JELLY 10 ML CARTRIDGE ONE (10:14)
[2020-06-17] MEDS ORDERED: LIDOCAINE HCL 2% JELLY 10 ML CARTRIDGE TP ONE (10:20)
[2020-06-17 10:31] VITALS: TEMP 98
[2020-06-17 10:47] VITALS: PULSE 77
[2020-06-17 12:21] VITALS: BP 139/80
== END 2020-06-17 12:00 | disposition home or self-care (01) ==
LOC: JASU-ENDO 04:52
PROVIDERS: ATTEND Internal Medicine Gastroenterology
PROC: 06LY4CC Occlusion of Hemorrhoidal Plexus with Extraluminal Device, Percutaneous Endoscopic Approach (ICD-10-PCS; principal; 2020-06-17 10:00)
DX: K64.8 Other hemorrhoids (principal)

== ENCOUNTER 2021-01-06 15:45 | Inpatient (IN) | payer OTHER, MEDICARE ==
[2021-01-06 15:52] VITALS: BMI 25.4
[2021-01-06] MEDS ORDERED: LACTATED RINGERS SOLUTION 1000 ML INFUS.BAG IV ONE (16:19)
[2021-01-06 16:43] LABS: EOS % 0.3 % (0-4.5); HEMATOCRIT 40.4 % (32.4-45.2); LYMPH % 14.2 % (8-40); MCH 35.9 pg (25.7-33.7); MCHC 34.5 g/dl (32.0-36.0); MEAN CELL VOLUME 103.8 fl (80-96); MEAN PLT VOLUME 8.7 fl (7.5-11.1); MONO % 13.8 % (3.8-10.2); NEUT % 70.7 % (42.8-82.8); PLATELET COUNT 197 K/MM3 (134-434); RBC 3.89 M/mm3 (3.60-5.2); RDW 13.8 % (11.6-15.6)
[2021-01-06 17:02] LABS: CHLORIDE 87 mmol/L (98-107); POTASSIUM 5.1 mmol/L (3.5-5.1); SODIUM 125 mmol/L (136-145)
[2021-01-06 17:03] LABS: CALCIUM 10.3 mg/dL (8.5-10.1)
[2021-01-06 17:04] LABS: ALBUMIN 4.2 g/dl (3.4-5.0); ANION GAP 20 MMOL/L (8-16); BLOOD UREA NITROGEN 23.4 mg/dL (7-18); CO2 18 mmol/L (21-32); GLUCOSE,RANDOM 109 mg/dL (74-106)
[2021-01-06 17:07] LABS: CREATININE 1.5 mg/dL (0.55-1.3); SGOT/AST 103 U/L (15-37); SGPT/ALT 52 U/L (13-61)
[2021-01-06 17:10] LABS: ALK PHOS 88 U/L (45-117); BILIRUBIN,TOTAL 2.2 mg/dL (0.2-1); TOT PROT 8.2 g/dl (6.4-8.2)
[2021-01-06 17:58] LABS: LACTIC ACID 2.3 mmol/L (0.4-2.0)
[2021-01-06] MEDS ORDERED: SODIUM CHLORIDE 0.9% 1000 ML INFUS.BAG IV ONE (18:18)
[2021-01-06 18:38] LABS: LIPASE 702 U/L (73-393)
[2021-01-06 22:00] LABS: CHLORIDE 95 mmol/L (98-107); POTASSIUM 4.7 mmol/L (3.5-5.1); SODIUM 129 mmol/L (136-145)
[2021-01-06 22:03] LABS: ANION GAP 15 MMOL/L (8-16); BLOOD UREA NITROGEN 21.5 mg/dL (7-18); CALCIUM 8.6 mg/dL (8.5-10.1); CO2 20 mmol/L (21-32); GLUCOSE,RANDOM 81 mg/dL (74-106)
[2021-01-06 22:05] LABS: CREATININE 1.1 mg/dL (0.55-1.3)
[2021-01-07] MEDS: SODIUM CHLORIDE 1,000 ML IV SCH (00:53)
[2021-01-07 05:59] LABS: URINE APPEARANCE CLEAR; URINE BILIRUBIN NEGATIVE (NEGATIVE); URINE COLOR YELLOW; URINE GLUCOSE (UA) NEGATIVE (NEGATIVE); URINE KETONE 3+ (NEGATIVE); URINE LEUK ESTERASE NEGATIVE (NEGATIVE); URINE NITRITE NEGATIVE (NEGATIVE); URINE PROTEIN TRACE (NEGATIVE)
[2021-01-07] MEDS ORDERED: HEPARIN NA (PORCINE) 5,000 UNITS/ML 1ML VIAL ONE (06:03)
[2021-01-07] MEDS: HEPARIN NA (PORCINE) 5,000 UNITS/ML 1ML VIAL SQ SCH ×3 (06:08→21:06)
[2021-01-07 08:00] LABS: BASO % 0.9 % (0-2.0); EOS % 2.1 % (0-4.5); HEMATOCRIT 31.7 % (32.4-45.2); HEMOGLOBIN 11.1 GM/dL (10.7-15.3); LYMPH % 28.6 % (8-40); MCH 36.1 pg (25.7-33.7); MCHC 34.9 g/dl (32.0-36.0); MEAN CELL VOLUME 103.3 fl (80-96); MEAN PLT VOLUME 9.1 fl (7.5-11.1); MONO % 16.2 % (3.8-10.2); NEUT % 52.2 % (42.8-82.8); PLATELET COUNT 144 K/MM3 (134-434); RBC 3.07 M/mm3 (3.60-5.2); WHITE BLOOD COUNT 4.8 K/mm3 (4.0-10.0)
[2021-01-07 08:01] LABS: POTASSIUM 4.5 mmol/L (3.5-5.1)
[2021-01-07 08:15] LABS: BILIRUBIN,DIRECT 0.8 mg/dL (0.0-0.2)
[2021-01-07 08:16] LABS: CALCIUM 8.1 mg/dL (8.5-10.1)
[2021-01-07 08:17] LABS: BLOOD UREA NITROGEN 19.4 mg/dL (7-18)
[2021-01-07 08:20] LABS: BILIRUBIN,TOTAL 1.7 mg/dL (0.2-1); TOT PROT 6.4 g/dl (6.4-8.2)
[2021-01-07 08:22] LABS: BILIRUBIN,TOTAL 1.7 mg/dL (0.2-1); TOT PROT 6.4 g/dl (6.4-8.2)
[2021-01-07 08:32] LABS: ALBUMIN 3.3 g/dl (3.4-5.0)
[2021-01-07 08:42] LABS: ALBUMIN 3.3 g/dl (3.4-5.0)
[2021-01-07] MEDS: FAMOTIDINE 20 MG TABLET PO SCH (11:06)
[2021-01-07] MEDS: MULTIVITAMINS (DAILY MVI) TABLET (FP) PO SCH (11:06)
[2021-01-07] MEDS: FOLIC ACID 1 MG TABLET (FP) PO SCH (11:06)
[2021-01-07] MEDS: THIAMINE HCL 100 MG TABLET (FP) PO SCH (11:07)
[2021-01-07] MEDS ORDERED: LORazepam 2 MG/ML SDV VIAL IVPUSH PRN (11:35)
[2021-01-07] MEDS ORDERED: ACETAMINOPHEN 1000 MG/100 ML VIAL (NON FORMULARY) IVPB PRN (11:36)
[2021-01-07] MEDS: LORazepam 2 MG/ML SDV VIAL IVPUSH PRN (11:56)
[2021-01-07] MEDS: METOPROLOL TARTRATE 25 MG TABLET (FP) PO SCH ×2 (13:27→21:06)
[2021-01-07] MEDS ORDERED: MELATONIN 5 MG TABLETS PO ONE ×2 (20:04→22:00)
[2021-01-08] MEDS: SODIUM CHLORIDE 1,000 ML IV SCH (02:20)
[2021-01-08] MEDS: HEPARIN NA (PORCINE) 5,000 UNITS/ML 1ML VIAL SQ SCH ×3 (06:57→22:06)
[2021-01-08] MEDS: THIAMINE HCL 100 MG TABLET (FP) PO SCH (09:30)
[2021-01-08] MEDS: MULTIVITAMINS (DAILY MVI) TABLET (FP) PO SCH (09:30)
[2021-01-08] MEDS: FOLIC ACID 1 MG TABLET (FP) PO SCH (09:30)
[2021-01-08] MEDS: FAMOTIDINE 20 MG TABLET PO SCH (09:30)
[2021-01-08] MEDS: METOPROLOL TARTRATE 25 MG TABLET (FP) PO SCH ×2 (09:30→22:07)
[2021-01-08] MEDS: LORazepam 2 MG/ML SDV VIAL IVPUSH PRN ×2 (22:07→23:04)
[2021-01-08] MEDS: MELATONIN 5 MG TABLETS PO ONE ×2 (22:07→23:13)
[2021-01-08] MEDS ORDERED: diphenhydrAMINE HCL 12.5 MG/5 ML UNIT-DOSE CUPS PO ONE (22:52)
[2021-01-08] MEDS ORDERED: ACETAMINOPHEN 1000 MG/100 ML VIAL (NON FORMULARY) IVPB ONE (23:45)
[2021-01-09] MEDS: VANCOMYCIN 250 MG/5 ML ORAL SOLUTION PO SCH ×4 (00:24→17:07)
[2021-01-09] MEDS: HEPARIN NA (PORCINE) 5,000 UNITS/ML 1ML VIAL SQ SCH ×3 (06:40→21:58)
[2021-01-09 07:55] LABS: BILIRUBIN,DIRECT 0.5 mg/dL (0.0-0.2)
[2021-01-09 07:57] LABS: BILIRUBIN,TOTAL 0.9 mg/dL (0.2-1); TOT PROT 5.7 g/dl (6.4-8.2)
[2021-01-09] MEDS: THIAMINE HCL 100 MG TABLET (FP) PO SCH (09:11)
[2021-01-09] MEDS: MULTIVITAMINS (DAILY MVI) TABLET (FP) PO SCH (09:11)
[2021-01-09] MEDS: FAMOTIDINE 20 MG TABLET PO SCH (09:11)
[2021-01-09] MEDS: METOPROLOL TARTRATE 25 MG TABLET (FP) PO SCH ×2 (09:11→21:58)
[2021-01-09] MEDS: FOLIC ACID 1 MG TABLET (FP) PO SCH (09:12)
[2021-01-09] MEDS: ACETAMINOPHEN 325 MG TABLET (FP) PO PRN ×2 (10:56→21:57)
[2021-01-09 15:08] LABS: EOS % 2.4 % (0-4.5); HEMATOCRIT 30.4 % (32.4-45.2); HEMOGLOBIN 10.3 GM/dL (10.7-15.3); LYMPH % 36.1 % (8-40); MCH 35.1 pg (25.7-33.7); MCHC 33.8 g/dl (32.0-36.0); MEAN CELL VOLUME 103.7 fl (80-96); MEAN PLT VOLUME 8.6 fl (7.5-11.1); MONO % 13.5 % (3.8-10.2); PLATELET COUNT 162 K/MM3 (134-434); RBC 2.93 M/mm3 (3.60-5.2); RDW 13.4 % (11.6-15.6); WHITE BLOOD COUNT 4.5 K/mm3 (4.0-10.0)
[2021-01-09 15:28] LABS: POTASSIUM 4.2 mmol/L (3.5-5.1)
[2021-01-09 15:30] LABS: CALCIUM 9.2 mg/dL (8.5-10.1)
[2021-01-09 15:34] LABS: CREATININE 0.7 mg/dL (0.55-1.3)
[2021-01-09 15:35] LABS: BILIRUBIN,TOTAL 0.9 mg/dL (0.2-1)
[2021-01-09] MEDS ORDERED: diphenhydrAMINE HCL 25 MG CAPSULE (FP) PO ONE (20:56)
[2021-01-10] MEDS: VANCOMYCIN 250 MG/5 ML ORAL SOLUTION PO SCH ×3 (00:38→17:41)
[2021-01-10] MEDS: HEPARIN NA (PORCINE) 5,000 UNITS/ML 1ML VIAL SQ SCH ×3 (05:42→21:10)
[2021-01-10] MEDS: FOLIC ACID 1 MG TABLET (FP) PO SCH (10:19)
[2021-01-10] MEDS: METOPROLOL TARTRATE 25 MG TABLET (FP) PO SCH ×2 (10:20→21:10)
[2021-01-10] MEDS: MULTIVITAMINS (DAILY MVI) TABLET (FP) PO SCH (10:20)
[2021-01-10] MEDS: THIAMINE HCL 100 MG TABLET (FP) PO SCH (10:20)
[2021-01-10] MEDS: FAMOTIDINE 20 MG TABLET PO SCH (10:20)
[2021-01-10 10:31] LABS: BASO % 0.9 % (0-2.0); EOS % 3.3 % (0-4.5); HEMATOCRIT 31.9 % (32.4-45.2); HEMOGLOBIN 10.8 GM/dL (10.7-15.3); LYMPH % 34.9 % (8-40); MCH 35.4 pg (25.7-33.7); MCHC 33.7 g/dl (32.0-36.0); MEAN CELL VOLUME 104.8 fl (80-96); MEAN PLT VOLUME 9.2 fl (7.5-11.1); MONO % 11.9 % (3.8-10.2); PLATELET COUNT 217 K/MM3 (134-434); RBC 3.05 M/mm3 (3.60-5.2); RDW 13.8 % (11.6-15.6)
[2021-01-10 11:25] LABS: POTASSIUM 3.9 mmol/L (3.5-5.1)
[2021-01-10 11:31] LABS: ALBUMIN 3.3 g/dl (3.4-5.0); BLOOD UREA NITROGEN 5.5 mg/dL (7-18)
[2021-01-10 11:33] LABS: BILIRUBIN,DIRECT 0.4 mg/dL (0.0-0.2)
[2021-01-10 11:34] LABS: CREATININE 0.7 mg/dL (0.55-1.3)
[2021-01-10 11:35] LABS: BILIRUBIN,TOTAL 0.8 mg/dL (0.2-1); TOT PROT 6.4 g/dl (6.4-8.2)
[2021-01-10] MEDS ORDERED: PATIENT'S OWN MEDICATION (NON-FORMULARY) (Olmesartan/Hydrochlorothiazide [Benicar Hct 40-1 PO SCH (17:15)
[2021-01-10] MEDS: HYDROCHLOROTHIAZIDE 12.5 MG CAPSULE (FP) PO SCH (18:30)
[2021-01-10] MEDS: LOSARTAN POTASSIUM 50 MG TABLET PO SCH (18:30)
[2021-01-10] MEDS ORDERED: diphenhydrAMINE HCL 25 MG CAPSULE (FP) PO ONE (21:23)
[2021-01-11] MEDS: HEPARIN NA (PORCINE) 5,000 UNITS/ML 1ML VIAL SQ SCH (07:25)
[2021-01-11] MEDS: LOSARTAN POTASSIUM 50 MG TABLET PO SCH (09:17)
[2021-01-11] MEDS: THIAMINE HCL 100 MG TABLET (FP) PO SCH (09:18)
[2021-01-11] MEDS: METOPROLOL TARTRATE 25 MG TABLET (FP) PO SCH (09:18)
[2021-01-11] MEDS: MULTIVITAMINS (DAILY MVI) TABLET (FP) PO SCH (09:18)
[2021-01-11] MEDS: FOLIC ACID 1 MG TABLET (FP) PO SCH (09:18)
[2021-01-11] MEDS: FAMOTIDINE 20 MG TABLET PO SCH (09:18)
[2021-01-11] MEDS: HYDROCHLOROTHIAZIDE 12.5 MG CAPSULE (FP) PO SCH (09:18)
[2021-01-11] MEDS ORDERED: HYDROCHLOROTHIAZIDE 12.5 MG CAPSULE (FP) PO SCH (10:00)
[2021-01-11] MEDS ORDERED: LOSARTAN POTASSIUM 100 MG TABLET PO SCH (10:00)
[2021-01-11 11:55] VITALS: BP 111/73; PULSE 100; TEMP 98.6
== END 2021-01-11 13:06 | disposition home or self-care (01) | DRG 683 ==
LOC: JER 15:45 → JERBED 18:19 → J6WEST-2 01-07 11:05
PROVIDERS: ATTEND Internal Medicine
DX: N17.9 Acute kidney failure, unspecified (principal); E87.1 Hypo-osmolality and hyponatremia; A09 Infectious gastroenteritis and colitis, unspecified; K70.10 Alcoholic hepatitis without ascites; I10 Essential (primary) hypertension; E86.0 Dehydration; G25.0 Essential tremor; F10.20 Alcohol dependence, uncomplicated; E78.5 Hyperlipidemia, unspecified; K57.90 Diverticulosis of intestine, part unspecified, without perforation or abscess without bleeding; K76.0 Fatty (change of) liver, not elsewhere classified
CPT/HCPCS: 36415; 70450-TC; 71045-TC-FY; 73110-TC-RT-FY; 73130-TC-RT-FY; 76705-TC; 80048; 80053; 80061; 80076; 80307; 81003; 82607; 82746; 82962; 83036; 83605; 83690; 83721; 84443; 84484; 85025; 86708; 86780; 87045; 87046; 87077; 87086; 87324; 87449; 93005; 93010; 99285-25; C9803; J0131; J1644; U0003

== ENCOUNTER 2021-01-21 10:58 | Inpatient (IN) | payer OTHER, MEDICARE ==
[2021-01-21] MEDS ORDERED: PANTOPRAZOLE SODIUM 40 MG in SODIUM CHLORIDE 100 ML IVPB ONE (11:51)
[2021-01-21] MEDS ORDERED: ONDANSETRON 4 MG/2 ML VIAL IVPB ONE (11:51)
[2021-01-21] MEDS ORDERED: PANTOPRAZOLE SODIUM 40 MG/100 ML BAG IVPB ONE (11:54)
[2021-01-21] MEDS ORDERED: ONDANSETRON 4 MG/2 ML VIAL ONE (11:54)
[2021-01-21 12:02] LABS: VENOUS BASE EXCESS 5.3 mmol/L (-2-2); VENOUS O2 SATURATION 31.9 % (70-80); VENOUS PCO2 41.9 mmHg (38-52); VENOUS PH 7.467 (7.310-7.410)
[2021-01-21] MEDS ORDERED: SODIUM CHLORIDE 1,000 ML IV STA (12:04)
[2021-01-21 12:05] LABS: BASO % 0.7 % (0-2.0); HEMATOCRIT 35.3 % (32.4-45.2); HEMOGLOBIN 12.3 GM/dL (10.7-15.3); LYMPH % 7.9 % (8-40); MCH 35.1 pg (25.7-33.7); MCHC 34.8 g/dl (32.0-36.0); MEAN CELL VOLUME 100.9 fl (80-96); MEAN PLT VOLUME 8.4 fl (7.5-11.1); MONO % 11.5 % (3.8-10.2); NEUT % 79.9 % (42.8-82.8); PLATELET COUNT 313 K/MM3 (134-434); RDW 14.1 % (11.6-15.6); WHITE BLOOD COUNT 12.8 K/mm3 (4.0-10.0)
[2021-01-21 12:10] LABS: INR 1.09 (0.83-1.09); PROTHROMBIN TIME (PATIENT) 13.1 SEC (9.7-13.0)
[2021-01-21 12:18] LABS: ACTIVATED PTT 24.3 SECONDS (25.2-36.5)
[2021-01-21 12:24] LABS: CHLORIDE 86 mmol/L (98-107); SODIUM 130 mmol/L (136-145)
[2021-01-21 12:27] LABS: CALCIUM 9.5 mg/dL (8.5-10.1); GLUCOSE,RANDOM 151 mg/dL (74-106); LIPASE 230 U/L (73-393)
[2021-01-21 12:28] LABS: ALBUMIN 3.8 g/dl (3.4-5.0); ANION GAP 13 MMOL/L (8-16); BLOOD UREA NITROGEN 18.7 mg/dL (7-18); CO2 31 mmol/L (21-32); MAGNESIUM 0.9 mg/dL (1.8-2.4)
[2021-01-21 12:30] LABS: CREATININE 1.1 mg/dL (0.55-1.3); PHOSPHOROUS 1.4 mg/dL (2.5-4.9); SGOT/AST 56 U/L (15-37); SGPT/ALT 47 U/L (13-61)
[2021-01-21 12:31] LABS: BILIRUBIN,TOTAL 1.6 mg/dL (0.2-1); TOT PROT 7.4 g/dl (6.4-8.2)
[2021-01-21 12:44] LABS: ALK PHOS 64 U/L (45-117)
[2021-01-21] MEDS ORDERED: NAPH,MB-DB/K PH,MBDB POWDER PACKET PO ONE (13:43)
[2021-01-21] MEDS ORDERED: MAGNESIUM SULF 50% (8.12 MEQ/2 ML-1 GM VIAL) IVPB ONE (13:43)
[2021-01-21] MEDS ORDERED: NAPH,MB-DB/K PH,MBDB POWDER PACKET ONE (16:09)
[2021-01-21] MEDS ORDERED: MAGNESIUM SULFATE IN WATER 2 GM/50 ML IVPB IVPB ONE (16:11)
[2021-01-21] MEDS ORDERED: ACETAMINOPHEN 325 MG TABLET (FP) PO PRN (16:27)
[2021-01-21 17:25] LABS: PH,URINE 5.5 (5.0-8.0); URINE APPEARANCE CLEAR; URINE BILIRUBIN NEGATIVE (NEGATIVE); URINE COLOR YELLOW; URINE GLUCOSE (UA) NEGATIVE (NEGATIVE); URINE KETONE 1+ (NEGATIVE); URINE LEUK ESTERASE NEGATIVE (NEGATIVE); URINE NITRITE NEGATIVE (NEGATIVE); URINE PROTEIN NEGATIVE (NEGATIVE); URINE UROBILINOGEN 0.2 mg/dL (0.2-1.0)
[2021-01-21] MEDS: ONDANSETRON 4 MG/2 ML VIAL IVPUSH PRN (18:00)
[2021-01-21] MEDS: LACTATED RINGERS SOLUTION 1,000 ML IV SCH (18:06)
[2021-01-21 19:37] VITALS: BMI 24.9
[2021-01-21] MEDS: PANTOPRAZOLE SODIUM 80 MG in SODIUM CHLORIDE 100 ML IVPB SCH (20:19)
[2021-01-21] MEDS ORDERED: MELATONIN 5 MG TABLETS PO ONE (20:36)
[2021-01-22] MEDS: PANTOPRAZOLE SODIUM 80 MG in SODIUM CHLORIDE 100 ML IVPB SCH ×2 (03:48→05:27)
[2021-01-22] MEDS: LACTATED RINGERS SOLUTION 1,000 ML IV SCH (05:27)
[2021-01-22] MEDS ORDERED: LORazepam 2 MG/ML SDV VIAL IVPUSH PRN (08:57)
[2021-01-22] MEDS: METOPROLOL TARTRATE 50 MG TABLET (FP) PO SCH (09:27)
[2021-01-22] MEDS: ONDANSETRON 4 MG/2 ML VIAL IVPUSH PRN (09:27)
[2021-01-22] MEDS ORDERED: LOSARTAN POTASSIUM 50 MG TABLET PO SCH (10:00)
[2021-01-22] MEDS ORDERED: PANTOPRAZOLE SODIUM 40 MG VIAL IVPUSH SCH (10:00)
[2021-01-22 10:47] LABS: EOS % 0.8 % (0-4.5); HEMATOCRIT 29.6 % (32.4-45.2); HEMOGLOBIN 10.3 GM/dL (10.7-15.3); LYMPH % 23.8 % (8-40); MCH 35.2 pg (25.7-33.7); MCHC 34.8 g/dl (32.0-36.0); MEAN CELL VOLUME 101.2 fl (80-96); MEAN PLT VOLUME 8.9 fl (7.5-11.1); MONO % 10.7 % (3.8-10.2); NEUT % 63.7 % (42.8-82.8); PLATELET COUNT 212 K/MM3 (134-434); RBC 2.92 M/mm3 (3.60-5.2); RDW 13.6 % (11.6-15.6); WHITE BLOOD COUNT 6.5 K/mm3 (4.0-10.0)
[2021-01-22 10:57] LABS: BLOOD UREA NITROGEN 7.6 mg/dL (7-18); CALCIUM 8.5 mg/dL (8.5-10.1)
[2021-01-22 11:00] LABS: CREATININE 0.8 mg/dL (0.55-1.3); MAGNESIUM 1.5 mg/dL (1.8-2.4)
[2021-01-22 11:01] LABS: IRON SERUM 113 ug/dL (50-175); PHOSPHOROUS 1.4 mg/dL (2.5-4.9)
[2021-01-22 11:02] LABS: BILIRUBIN,TOTAL 1.3 mg/dL (0.2-1); TOT PROT 5.8 g/dl (6.4-8.2); TOTAL IRON BINDING CAPACITY 239 ug/dL (250-450)
[2021-01-22] MEDS ORDERED: MAGNESIUM 2GM/50ML STERILE WATER IVPB IVPB ONE (13:45)
[2021-01-22] MEDS: LORazepam 2 MG/ML SDV VIAL IVPUSH PRN ×2 (15:31→21:41)
[2021-01-22] MEDS: PANTOPRAZOLE 40 MG TABLET PO SCH (15:38)
[2021-01-22] MEDS ORDERED: MAG HYDROX/AL HYDROX/SIMETH 30 ML UNIT-DOSE CUP PO ONE (22:03)
[2021-01-23] MEDS: LORazepam 2 MG/ML SDV VIAL IVPUSH PRN ×2 (03:51→22:18)
[2021-01-23 08:55] LABS: CALCIUM 8.5 mg/dL (8.5-10.1)
[2021-01-23 08:56] LABS: ALBUMIN 2.8 g/dl (3.4-5.0); BLOOD UREA NITROGEN 3.8 mg/dL (7-18); HEMATOCRIT 29.8 % (32.4-45.2); HEMOGLOBIN 10.4 GM/dL (10.7-15.3); MCH 35.9 pg (25.7-33.7); MEAN CELL VOLUME 102.6 fl (80-96); RBC 2.91 M/mm3 (3.60-5.2); RDW 13.2 % (11.6-15.6); WHITE BLOOD COUNT 6.3 K/mm3 (4.0-10.0)
[2021-01-23 08:59] LABS: CREATININE 0.7 mg/dL (0.55-1.3)
[2021-01-23 09:00] LABS: BILIRUBIN,TOTAL 0.9 mg/dL (0.2-1); TOT PROT 5.7 g/dl (6.4-8.2)
[2021-01-23] MEDS: PANTOPRAZOLE 40 MG TABLET PO SCH ×2 (09:01→21:18)
[2021-01-23] MEDS: METOPROLOL TARTRATE 50 MG TABLET (FP) PO SCH (09:01)
[2021-01-23] MEDS ORDERED: MAG HYDROX/AL HYDROX/SIMETH 30 ML UNIT-DOSE CUP PO PRN (09:36)
[2021-01-23] MEDS: THIAMINE HCL 100 MG TABLET (FP) PO SCH (14:33)
[2021-01-23] MEDS: MULTIVITAMINS (DAILY MVI) TABLET (FP) PO SCH (14:33)
[2021-01-23] MEDS: MAG HYDROX/AL HYDROX/SIMETH 30 ML UNIT-DOSE CUP PO PRN ×2 (17:10→21:18)
[2021-01-23] MEDS ORDERED: FAMOTIDINE 20 MG/50 ML IVPB 20 MG/50 ML MG IVPB ONE (21:44)
[2021-01-24] MEDS: LORazepam 2 MG/ML SDV VIAL IVPUSH PRN ×2 (03:24→10:06)
[2021-01-24] MEDS: MAG HYDROX/AL HYDROX/SIMETH 30 ML UNIT-DOSE CUP PO PRN ×2 (06:12→10:28)
[2021-01-24] MEDS: PANTOPRAZOLE 40 MG TABLET PO SCH (09:55)
[2021-01-24] MEDS: MULTIVITAMINS (DAILY MVI) TABLET (FP) PO SCH (09:55)
[2021-01-24] MEDS: METOPROLOL TARTRATE 50 MG TABLET (FP) PO SCH (09:55)
[2021-01-24] MEDS: THIAMINE HCL 100 MG TABLET (FP) PO SCH (09:55)
[2021-01-24 10:51] VITALS: BP 146/82; PULSE 88; TEMP 97.9
== END 2021-01-24 11:34 | disposition home or self-care (01) | DRG 369 ==
LOC: JER 10:58 → JERBED 13:40 → J5S 17:11
PROVIDERS: ADMIT Student in an Organized Health Care Education/Training Program
PROC: 0DJ08ZZ Inspection of Upper Intestinal Tract, Via Natural or Artificial Opening Endoscopic (ICD-10-PCS; principal; 2021-01-22 12:33)
DX: K20.91 Esophagitis, unspecified with bleeding (principal); E87.1 Hypo-osmolality and hyponatremia; E87.3 Alkalosis; I10 Essential (primary) hypertension; B19.20 Unspecified viral hepatitis C without hepatic coma; E83.39 Other disorders of phosphorus metabolism; E83.42 Hypomagnesemia; E78.5 Hyperlipidemia, unspecified; K21.9 Gastro-esophageal reflux disease without esophagitis; M51.36 Other intervertebral disc degeneration, lumbar region; F10.20 Alcohol dependence, uncomplicated; G25.0 Essential tremor; K76.0 Fatty (change of) liver, not elsewhere classified; K44.9 Diaphragmatic hernia without obstruction or gangrene; F39 Unspecified mood [affective] disorder
CPT/HCPCS: 36415; 71045-TC-FY; 74019-TC-FY; 80053; 81003; 82140; 82272; 82550; 82728; 82803; 83010; 83540; 83550; 83615; 83690; 83735; 84100; 84484; 85025; 85027; 85610; 85730; 86850; 86900; 86901; 87077; 87086; 93005; 93010; 99285-25; C9803; U0003; U0005

== ENCOUNTER 2021-07-19 15:56 | Observation (INO) | payer OTHER, MEDICARE ==
[2021-07-19] MEDS ORDERED: LACTATED RINGERS SOLUTION 1000 ML INFUS.BAG IV ONE (18:24)
[2021-07-19 18:52] LABS: BASO % 0.5 % (0-2.0); EOS % 0.4 % (0-4.5); HEMATOCRIT 39.7 % (32.4-45.2); HEMOGLOBIN 13.9 GM/dL (10.7-15.3); LYMPH % 14.5 % (8-40); MCHC 34.9 g/dl (32.0-36.0); MEAN CELL VOLUME 100.5 fl (80-96); MEAN PLT VOLUME 8.6 fl (7.5-11.1); MONO % 8.8 % (3.8-10.2); NEUT % 75.8 % (42.8-82.8); PLATELET COUNT 181 10^3/uL (134-434); RBC 3.95 M/mm3 (3.60-5.2); RDW 14.1 % (11.6-15.6); WHITE BLOOD COUNT 8.7 K/mm3 (4.0-10.0)
[2021-07-19 18:59] LABS: INR 0.98 (0.83-1.09); PROTHROMBIN TIME (PATIENT) 12.1 SEC (9.7-13.0)
[2021-07-19 19:01] LABS: ACTIVATED PTT 26.4 SECONDS (25.2-36.5)
[2021-07-19 19:09] LABS: CHLORIDE 87 mmol/L (98-107); SODIUM 132 mmol/L (136-145)
[2021-07-19 19:12] LABS: ALBUMIN 3.6 g/dl (3.4-5.0); BLOOD UREA NITROGEN 6.8 mg/dL (7-18); CALCIUM 8.9 mg/dL (8.5-10.1); CO2 33 mmol/L (21-32); GLUCOSE,RANDOM 113 mg/dL (74-106); MAGNESIUM 0.7 mg/dL (1.8-2.4)
[2021-07-19 19:15] LABS: SGOT/AST 103 U/L (15-37); SGPT/ALT 44 U/L (13-61)
[2021-07-19 19:17] LABS: TOT PROT 7.4 g/dl (6.4-8.2)
[2021-07-19 19:18] LABS: ALK PHOS 85 U/L (45-117)
[2021-07-19 19:21] LABS: ANION GAP 12 MMOL/L (8-16)
[2021-07-19] MEDS ORDERED: POTASSIUM CHLORIDE TABS 20 MEQ TABLET.ER (FP) PO ONE (19:22)
[2021-07-19] MEDS ORDERED: MAGNESIUM SULF 50% (8.12 MEQ/2 ML-1 GM VIAL) IVPB ONE ×2 (19:23→19:55)
[2021-07-19] MEDS ORDERED: POTASSIUM CHLORIDE ORAL LIQUID 20 MEQ/15 ML ONE ×2 (19:26→21:09)
[2021-07-19] MEDS ORDERED: MAGNESIUM SULFATE IN WATER 2 GM/50 ML IVPB IVPB ONE ×2 (19:26→19:58)
[2021-07-19] MEDS ORDERED: KCL 10 MEQ IVPB 10 MEQ/100 ML INFUS.BAG IVPB SCH (19:30)
[2021-07-19] MEDS ORDERED: KCL 10 MEQ IVPB 10 MEQ/100 ML INFUS.BAG IVPB ONE (19:34)
[2021-07-19] MEDS ORDERED: POTASSIUM CHLORIDE ORAL LIQUID 20 MEQ/15 ML PO ONE (20:30)
[2021-07-19 21:43] LABS: CALCIUM 8.5 mg/dL (8.5-10.1)
[2021-07-19 21:44] LABS: BLOOD UREA NITROGEN 6.1 mg/dL (7-18); MAGNESIUM 3.1 mg/dL (1.8-2.4)
[2021-07-19 21:47] LABS: CREATININE 0.9 mg/dL (0.55-1.3)
[2021-07-19] MEDS ORDERED: TRIMETHOBENZAMIDE HCL 300 MG CAPSULE PO ONE (22:06)
[2021-07-19] MEDS ORDERED: LORazepam 1 MG TABLET PO PRN (22:10)
[2021-07-19] MEDS: TRIMETHOBENZAMIDE HCL 300 MG CAPSULE PO PRN (22:52)
[2021-07-19 23:25] LABS: PHOSPHOROUS 1.5 mg/dL (2.5-4.9)
[2021-07-19] MEDS ORDERED: FOLIC ACID INJECTION - 1 MG, THIAMINE HCL 100 MG, MULTIVIT INJECTION ADULT 10 ML in SOD... IVPB ONE (23:42)
[2021-07-20 01:06] LABS: EPI CELLS >36 /uL (0-25.1); HYALINE CASTS 3 /uL (0-3.1); PH,URINE 6.5 (5.0-8.0); URINE APPEARANCE CLEAR; URINE BACTERIA 832 /uL (0-1359); URINE BILIRUBIN NEGATIVE (NEGATIVE); URINE COLOR YELLOW; URINE GLUCOSE (UA) NEGATIVE (NEGATIVE); URINE KETONE NEGATIVE (NEGATIVE); URINE LEUK ESTERASE 1+ (NEGATIVE); URINE NITRITE NEGATIVE (NEGATIVE); URINE PROTEIN NEGATIVE (NEGATIVE); URINE RBC 10 /uL (0-23.9); URINE WBC 27 /uL (0-25.8)
[2021-07-20] MEDS: NAPH,MB-DB/K PH,MBDB POWDER PACKET PO SCH ×4 (02:20→21:34)
[2021-07-20 06:53] LABS: HEMATOCRIT 32.5 % (32.4-45.2); HEMOGLOBIN 11.3 GM/dL (10.7-15.3); MCH 35.4 pg (25.7-33.7); MCHC 34.8 g/dl (32.0-36.0); MEAN CELL VOLUME 101.7 fl (80-96); MEAN PLT VOLUME 8.1 fl (7.5-11.1); PLATELET COUNT 131 10^3/uL (134-434); WHITE BLOOD COUNT 5.4 K/mm3 (4.0-10.0)
[2021-07-20 07:13] LABS: INR 0.91 (0.83-1.09); PROTHROMBIN TIME (PATIENT) 11.2 SEC (9.7-13.0)
[2021-07-20 07:16] LABS: CHLORIDE 100 mmol/L (98-107); SODIUM 137 mmol/L (136-145)
[2021-07-20 07:19] LABS: ANION GAP 7 MMOL/L (8-16); BLOOD UREA NITROGEN 5.2 mg/dL (7-18); CO2 30 mmol/L (21-32); GLUCOSE,RANDOM 98 mg/dL (74-106); MAGNESIUM 1.7 mg/dL (1.8-2.4)
[2021-07-20 07:21] LABS: SGPT/ALT 30 U/L (13-61)
[2021-07-20 07:22] LABS: CREATININE 0.9 mg/dL (0.55-1.3); SGOT/AST 71 U/L (15-37)
[2021-07-20 07:23] LABS: BILIRUBIN,TOTAL 1.3 mg/dL (0.2-1); TOT PROT 5.7 g/dl (6.4-8.2)
[2021-07-20 07:25] LABS: ALK PHOS 65 U/L (45-117)
[2021-07-20 07:48] LABS: ALBUMIN 2.7 g/dl (3.4-5.0)
[2021-07-20] MEDS ORDERED: POTASSIUM CHLORIDE TABS 20 MEQ TABLET.ER (FP) PO ONE (08:15)
[2021-07-20] MEDS ORDERED: THIAMINE HCL 200 MG/2 ML VIAL ONE (09:21)
[2021-07-20] MEDS ORDERED: LOSARTAN POTASSIUM 50 MG TABLET ONE (09:22)
[2021-07-20] MEDS ORDERED: METOPROLOL TARTRATE 50 MG TABLET (FP) ONE (09:22)
[2021-07-20] MEDS ORDERED: PANTOPRAZOLE 40 MG TABLET ONE (09:22)
[2021-07-20] MEDS ORDERED: ENOXAPARIN NA (PORCINE) 40 MG/0.4 ML DISP.SYRIN SQ ONE (09:23)
[2021-07-20] MEDS ORDERED: LORazepam 1 MG TABLET ONE (09:23)
[2021-07-20] MEDS: LOSARTAN POTASSIUM 50 MG TABLET PO SCH (10:10)
[2021-07-20] MEDS: ENOXAPARIN NA (PORCINE) 40 MG/0.4 ML DISP.SYRIN SQ SCH (11:00)
[2021-07-20] MEDS: THIAMINE HCL 200 MG/2 ML VIAL IVPB SCH (11:01)
[2021-07-20] MEDS: METOPROLOL TARTRATE 50 MG TABLET (FP) PO SCH (11:01)
[2021-07-20] MEDS: PANTOPRAZOLE 40 MG TABLET PO SCH (11:01)
[2021-07-20 12:44] VITALS: BMI 24.1
[2021-07-20] MEDS ORDERED: FLU VACC QS2021-22(6MOS UP)/PF 60 MCG/0.5 ML SYRINGE IM ONE (13:15)
[2021-07-20] MEDS ORDERED: MAGNESIUM OXIDE 400 MG TABLET (FP) PO ONE (14:07)
[2021-07-20] MEDS: MULTIVITAMINS (DAILY MVI) TABLET (FP) PO SCH (16:24)
[2021-07-21] MEDS: NAPH,MB-DB/K PH,MBDB POWDER PACKET PO SCH ×3 (05:56→21:25)
[2021-07-21] MEDS: ENOXAPARIN NA (PORCINE) 40 MG/0.4 ML DISP.SYRIN SQ SCH (09:55)
[2021-07-21] MEDS: METOPROLOL TARTRATE 50 MG TABLET (FP) PO SCH (09:55)
[2021-07-21] MEDS: LOSARTAN POTASSIUM 50 MG TABLET PO SCH (09:55)
[2021-07-21] MEDS: PANTOPRAZOLE 40 MG TABLET PO SCH (09:56)
[2021-07-21] MEDS: MULTIVITAMINS (DAILY MVI) TABLET (FP) PO SCH (09:56)
[2021-07-21] MEDS: TRIMETHOBENZAMIDE HCL 300 MG CAPSULE PO PRN (09:56)
[2021-07-21] MEDS: THIAMINE HCL 200 MG/2 ML VIAL IVPB SCH (09:56)
[2021-07-21 14:14] LABS: BASO % 1.1 % (0-2.0); EOS % 2.3 % (0-4.5); HEMATOCRIT 33.9 % (32.4-45.2); HEMOGLOBIN 11.6 GM/dL (10.7-15.3); MCH 35.3 pg (25.7-33.7); MCHC 34.3 g/dl (32.0-36.0); MEAN CELL VOLUME 102.9 fl (80-96); MEAN PLT VOLUME 9.1 fl (7.5-11.1); MONO % 15.2 % (3.8-10.2); NEUT % 53.4 % (42.8-82.8); PLATELET COUNT 147 10^3/uL (134-434); RBC 3.29 M/mm3 (3.60-5.2); RDW 14.2 % (11.6-15.6); WHITE BLOOD COUNT 5.3 K/mm3 (4.0-10.0)
[2021-07-21 14:43] LABS: CALCIUM 8.7 mg/dL (8.5-10.1)
[2021-07-21 14:44] LABS: BLOOD UREA NITROGEN 5.4 mg/dL (7-18); MAGNESIUM 1.1 mg/dL (1.8-2.4)
[2021-07-21 14:46] LABS: PHOSPHOROUS 2.6 mg/dL (2.5-4.9)
[2021-07-21 14:47] LABS: CREATININE 0.7 mg/dL (0.55-1.3)
[2021-07-21 14:48] LABS: BILIRUBIN,TOTAL 1.3 mg/dL (0.2-1); TOT PROT 6.3 g/dl (6.4-8.2)
[2021-07-21] MEDS ORDERED: POTASSIUM CHLORIDE TABS 20 MEQ TABLET.ER (FP) PO ONE ×2 (15:13→19:00)
[2021-07-21] MEDS ORDERED: MAGNESIUM OXIDE 400 MG TABLET (FP) PO ONE (15:14)
[2021-07-21] MEDS ORDERED: POTASSIUM CHLORIDE ORAL LIQUID 20 MEQ/15 ML PO ONE (19:00)
[2021-07-22 03:05] VITALS: PULSE 78
[2021-07-22] MEDS: NAPH,MB-DB/K PH,MBDB POWDER PACKET PO SCH (06:22)
[2021-07-22 09:26] LABS: BASO % 0.9 % (0-2.0); EOS % 2.1 % (0-4.5); HEMATOCRIT 35.1 % (32.4-45.2); HEMOGLOBIN 12.1 GM/dL (10.7-15.3); LYMPH % 28.6 % (8-40); MCH 35.5 pg (25.7-33.7); MCHC 34.5 g/dl (32.0-36.0); MEAN CELL VOLUME 102.7 fl (80-96); MEAN PLT VOLUME 8.9 fl (7.5-11.1); MONO % 18.9 % (3.8-10.2); NEUT % 49.5 % (42.8-82.8); PLATELET COUNT 186 10^3/uL (134-434); RBC 3.42 M/mm3 (3.60-5.2); RDW 14.3 % (11.6-15.6); WHITE BLOOD COUNT 5.7 K/mm3 (4.0-10.0)
[2021-07-22 09:55] LABS: ALBUMIN 3.1 g/dl (3.4-5.0)
[2021-07-22 09:56] LABS: BLOOD UREA NITROGEN 4.9 mg/dL (7-18)
[2021-07-22 09:58] LABS: CREATININE 0.8 mg/dL (0.55-1.3)
[2021-07-22 10:00] LABS: BILIRUBIN,TOTAL 1.3 mg/dL (0.2-1); TOT PROT 6.4 g/dl (6.4-8.2)
[2021-07-22 10:05] LABS: MAGNESIUM 1.3 mg/dL (1.8-2.4)
[2021-07-22] MEDS ORDERED: MAGNESIUM OXIDE 400 MG TABLET (FP) PO ONE (10:14)
[2021-07-22] MEDS: PANTOPRAZOLE 40 MG TABLET PO SCH (10:48)
[2021-07-22] MEDS: MULTIVITAMINS (DAILY MVI) TABLET (FP) PO SCH (10:48)
[2021-07-22] MEDS: METOPROLOL TARTRATE 50 MG TABLET (FP) PO SCH (10:48)
[2021-07-22] MEDS: LOSARTAN POTASSIUM 50 MG TABLET PO SCH (10:49)
[2021-07-22] MEDS: ENOXAPARIN NA (PORCINE) 40 MG/0.4 ML DISP.SYRIN SQ SCH (10:49)
[2021-07-22] MEDS: THIAMINE HCL 200 MG/2 ML VIAL IVPB SCH (10:49)
[2021-07-22 12:24] VITALS: BP 142/79; TEMP 98.6
[2021-07-22] MEDS ORDERED: MAGNESIUM OXIDE 400 MG TABLET (FP) PO SCH (22:00)
== END 2021-07-22 12:08 | disposition home or self-care (01) ==
LOC: JER 15:56 → JERBED 19:25 → INTOOBSV 19:25 → UNDOADMOB 19:25 → JERBED 07-20 11:29 → J4W 07-20 12:34
PROVIDERS: ADMIT Internal Medicine; ATTEND Nurse Practitioner Acute Care
PROC: 3E0234Z Introduction of Serum, Toxoid and Vaccine into Muscle, Percutaneous Approach (ICD-10-PCS; principal; 2021-07-20)
PROC: 3E0337Z Introduction of Electrolytic and Water Balance Substance into Peripheral Vein, Percutaneous Approach (ICD-10-PCS; 2021-07-20)
PROC: 3E033GC Introduction of Other Therapeutic Substance into Peripheral Vein, Percutaneous Approach (ICD-10-PCS; 2021-07-20)
DX: G90.529 Complex regional pain syndrome I of unspecified lower limb (principal); B19.20 Unspecified viral hepatitis C without hepatic coma; E83.42 Hypomagnesemia; E87.1 Hypo-osmolality and hyponatremia; E87.6 Hypokalemia; F10.10 Alcohol abuse, uncomplicated; I10 Essential (primary) hypertension; K21.9 Gastro-esophageal reflux disease without esophagitis; K59.00 Constipation, unspecified; E78.00 Pure hypercholesterolemia, unspecified; Z29.9 Encounter for prophylactic measures, unspecified; Z23 Encounter for immunization; E83.39 Other disorders of phosphorus metabolism
CPT/HCPCS: 36415; 71045-TC-FY; 80048; 80053; 81003; 82550; 83735; 84100; 84443; 84484; 85025; 85027; 85610; 85730; 87077; 87086; 87186; 90471; 90686; 93005; 93010; 93306-TC; 93880-TC; 96361; 96365; 96367; 96375; 96376; 97116-GP; 97161-GP; 99285-25; C9803; G0378; U0003; U0005

== ENCOUNTER 2022-07-21 07:30 | Day surgery (SDC) | payer OTHER, MEDICARE ==
[2022-07-19 18:47] VITALS: BMI 25.4
[2022-07-21] MEDS ORDERED: CYCLOPENTOLATE HCL 1% OPHTH SOLN 2 ML BOTTLE ONE (07:37)
[2022-07-21] MEDS: PHENYLEPHRINE 2.5% OPHTH SOLN 15 ML BOTTLE ONE ×3 (07:55→08:05)
[2022-07-21] MEDS: CYCLOPENTOLATE 2% OPHTH SOLN 2 ML BOTTLE ONE ×3 (07:55→08:05)
[2022-07-21] MEDS: CIPROFLOXACIN 0.3% EYE DROPS 5 ML BOTTLE ONE ×3 (07:55→08:05)
[2022-07-21] MEDS: TROPICAMIDE 1% OPHTH SOLN 15 ML BOTTLE ONE ×3 (07:55→08:05)
[2022-07-21] MEDS ORDERED: TETRACAINE 0.5% OPHTH SOLN 2 ML BOTTLE ONE (09:00)
[2022-07-21] MEDS ORDERED: LIDOCAINE HCL/PF 1% SDV 5ML VIAL ONE (09:00)
[2022-07-21] MEDS ORDERED: EPINEPHrine/PF 1 MG/1 ML (1:1,000) AMPULE ONE (09:00)
[2022-07-21] MEDS ORDERED: BSS (NA/CA/MG/K) BALANCED SALT SOLUTION OPHTH SOLN 15 ML BOTTLE ONE (09:01)
[2022-07-21] MEDS ORDERED: NEO/POLYMYX B SULF/DEXAMETH OPHTHALMIC 5ML BOTTLE ONE (09:01)
[2022-07-21] MEDS ORDERED: CARBACHOL 0.01% INTRA-OCULAR 1.5 ML VIAL ONE (09:01)
[2022-07-21] MEDS ORDERED: MIDAZOLAM HCL 2 MG/2 ML SINGLE DOSE VIAL ONE ×2 (09:13→09:16)
[2022-07-21 09:52] VITALS: RESP 19; TEMP 97.6
[2022-07-21 10:05] VITALS: BP 112/70; PULSE 77
== END 2022-07-21 10:14 | disposition home or self-care (01) ==
LOC: FASU 07:30
PROVIDERS: ATTEND Ophthalmology
PROC: 08RJ3JZ Replacement of Right Lens with Synthetic Substitute, Percutaneous Approach (ICD-10-PCS; principal; 2022-07-21 09:20)
DX: H26.8 Other specified cataract (principal)

== ENCOUNTER 2022-09-08 07:32 | Day surgery (SDC) | payer OTHER, MEDICARE ==
[2022-09-06 14:06] VITALS: BMI 25.4
[2022-09-08] MEDS ORDERED: PHENYLEPHRINE 2.5% OPHTH SOLN 15 ML BOTTLE ONE (07:38)
[2022-09-08] MEDS ORDERED: CIPROFLOXACIN 0.3% EYE DROPS 5 ML BOTTLE ONE (07:38)
[2022-09-08] MEDS ORDERED: TROPICAMIDE 1% OPHTH SOLN 15 ML BOTTLE ONE (07:38)
[2022-09-08] MEDS ORDERED: CYCLOPENTOLATE 2% OPHTH SOLN 2 ML BOTTLE ONE (07:38)
[2022-09-08] MEDS ORDERED: CIPROFLOXACIN 0.3% EYE DROPS 5 ML BOTTLE OS ONE ×3 (07:40→07:50)
[2022-09-08] MEDS ORDERED: CYCLOPENTOLATE 2% OPHTH SOLN 2 ML BOTTLE OS ONE ×3 (07:40→07:50)
[2022-09-08] MEDS ORDERED: TROPICAMIDE 1% OPHTH SOLN 15 ML BOTTLE OS ONE ×3 (07:40→07:50)
[2022-09-08] MEDS ORDERED: PHENYLEPHRINE 2.5% OPHTH SOLN 15 ML BOTTLE OS ONE ×3 (07:40→07:50)
[2022-09-08] MEDS ORDERED: TETRACAINE 0.5% OPHTH SOLN 2 ML BOTTLE ONE (09:12)
[2022-09-08] MEDS ORDERED: BSS (NA/CA/MG/K) BALANCED SALT SOLUTION OPHTH SOLN 15 ML BOTTLE ONE (09:12)
[2022-09-08] MEDS ORDERED: CARBACHOL 0.01% INTRA-OCULAR 1.5 ML VIAL ONE (09:13)
[2022-09-08] MEDS ORDERED: NEO/POLYMYX B SULF/DEXAMETH OPHTHALMIC 5ML BOTTLE ONE (09:13)
[2022-09-08] MEDS ORDERED: MIDAZOLAM HCL 2 MG/2 ML SINGLE DOSE VIAL ONE ×2 (09:17→09:29)
[2022-09-08] MEDS ORDERED: ONDANSETRON 4 MG/2 ML VIAL ONE (09:17)
[2022-09-08] MEDS ORDERED: ACETAMINOPHEN 325 MG TABLET (FP) PO PRN (09:47)
[2022-09-08] MEDS ORDERED: ONDANSETRON 4 MG/2 ML VIAL IVPUSH PRN (09:47)
[2022-09-08] MEDS ORDERED: LACTATED RINGERS SOLUTION 1,000 ML IV SCH (10:00)
[2022-09-08 10:04] VITALS: PULSE 72; RESP 18
[2022-09-08 10:21] VITALS: BP 105/74; TEMP 98
== END 2022-09-08 10:30 | disposition home or self-care (01) ==
LOC: FASU 07:32
PROVIDERS: ATTEND Ophthalmology
PROC: 08RK3JZ Replacement of Left Lens with Synthetic Substitute, Percutaneous Approach (ICD-10-PCS; principal; 2022-09-08 09:27)
DX: H26.8 Other specified cataract (principal)
CPT/HCPCS: 66984; V2632

== ENCOUNTER 2023-03-03 13:17 | Observation (INO) | payer OTHER ==
[2023-03-03 13:24] VITALS: RESP 18; BMI 25.6
[2023-03-03 14:13] LABS: HEMATOCRIT 41.6 % (32.4-45.2); HEMOGLOBIN 13.9 G/dL (10.7-15.3); MCH 33.2 pg (25.7-33.7); MCHC 33.5 g/dl (32.0-36.0); MEAN CELL VOLUME 99.4 fl (80-96); MEAN PLT VOLUME 8.8 fl (7.5-11.1); PLATELET COUNT 200.2 10^3/uL (134-434); RBC 4.19 10^6/uL (3.60-5.2); RDW 14.2 % (11.6-15.6); WHITE BLOOD COUNT 9.2 10^3/uL (4.0-10.8)
[2023-03-03 14:21] LABS: ALBUMIN 3.2 g/dl (3.4-5.0); ALK PHOS 74 U/L (45-117); ANION GAP 12 MMOL/L (8-16); BILIRUBIN,TOTAL 2.2 mg/dl (0.2-1); CALCIUM 8.3 mg/dl (8.5-10); CHLORIDE 93 mmol/L (98-107); CO2 26 mmol/L (21-32); CREATININE 0.8 mg/dl (0.55-1.3); GLUCOSE,RANDOM 105 mg/dl (74-106); PHOSPHOROUS 3.5 mg/dl (2.5-4.9); POTASSIUM 3.4 mmol/L (3.5-5.1); SGOT/AST 33 U/L (15-37); SGPT/ALT 12 U/L (13-61); SODIUM 131 mmol/L (136-145); TOT PROT 6.6 g/dl (6.4-8.2)
[2023-03-03 14:29] LABS: MAGNESIUM 0.6 mg/dL (1.8-2.4)
[2023-03-03] MEDS ORDERED: MAGNESIUM SULF 50% (8.12 MEQ/2 ML-1 GM VIAL) IVPB ONE (14:33)
[2023-03-03] MEDS ORDERED: MAGNESIUM SULFATE IN WATER 2 GM/50 ML IVPB IVPB ONE ×2 (14:34→20:45)
[2023-03-03 14:39] LABS: PLATELET ESTIMATE ADEQUATE
[2023-03-03] MEDS ORDERED: ACETAMINOPHEN INJECTION 100 ML IVPB ONE (15:00)
[2023-03-03] MEDS ORDERED: ACETAMINOPHEN 1000 MG/100 ML BAG IVPB ONE ×2 (15:02→21:27)
[2023-03-03] MEDS ORDERED: POTASSIUM CHLORIDE TABS 20 MEQ TABLET.ER (FP) PO ONE ×2 (17:09→17:22)
[2023-03-03 20:24] LABS: ALBUMIN 3.2 g/dl (3.4-5.0); BILIRUBIN,TOTAL 1.7 mg/dl (0.2-1); CALCIUM 8.5 mg/dl (8.5-10); CREATININE 1.1 mg/dl (0.55-1.3); POTASSIUM 3.4 mmol/L (3.5-5.1); TOT PROT 6.6 g/dl (6.4-8.2)
[2023-03-03] MEDS ORDERED: MAGNESIUM OXIDE 400 MG TABLET (FP) PO ONE (21:08)
[2023-03-03] MEDS ORDERED: traMADol HCL 50 MG TABLET PO ONE (21:08)
[2023-03-03] MEDS ORDERED: DOCUSATE SODIUM 100 MG CAPSULE (FP) PO PRN (21:25)
[2023-03-03] MEDS ORDERED: DEXTROSE 5%-NORMAL SALINE 1,000 ML IV SCH (21:30)
[2023-03-03] MEDS: AMITRIPTYLINE HCL 10 MG TABLET PO SCH (23:00)
[2023-03-04] MEDS ORDERED: ACETAMINOPHEN 1000 MG/100 ML BAG IVPB ONE (04:37)
[2023-03-04] MEDS ORDERED: METOCLOPRAMIDE HCL INJECTION 10 MG/2 ML VIAL IVPUSH ONE (04:38)
[2023-03-04] MEDS ORDERED: BENZOCAINE/MENTHOL (CHLORASEPTIC ) LOZENGE MM PRN (05:43)
[2023-03-04 08:15] LABS: INR 1.02 (0.83-1.09); PROTHROMBIN TIME (PATIENT) 11.7 SEC (9.7-13.0)
[2023-03-04 08:18] LABS: ACTIVATED PTT 27.4 SECONDS (25.2-36.5)
[2023-03-04 08:32] LABS: MAGNESIUM 1.8 mg/dL (1.8-2.4); POTASSIUM 3.5 mmol/L (3.5-5.1)
[2023-03-04 09:22] VITALS: BP 122/70; PULSE 95; TEMP 97.8
[2023-03-04] MEDS: AMITRIPTYLINE HCL 10 MG TABLET PO SCH (09:27)
[2023-03-04] MEDS ORDERED: MAGNESIUM OXIDE 400 MG TABLET (FP) PO SCH (10:00)
[2023-03-04] MEDS ORDERED: PANTOPRAZOLE 40 MG TABLET PO SCH (10:00)
[2023-03-04] MEDS ORDERED: METOPROLOL TARTRATE 25 MG TABLET (FP) PO SCH (10:00)
[2023-03-04] MEDS ORDERED: METOPROLOL TARTRATE 50 MG TABLET (FP) PO SCH (10:00)
[2023-03-04] MEDS ORDERED: CHOLECALCIFEROL (VIT D3) 1,000 UNIT (25 MCG) TABLET PO SCH (10:00)
[2023-03-04] MEDS ORDERED: HYDROCHLOROTHIAZIDE 12.5 MG CAPSULE (FP) PO SCH (10:00)
[2023-03-04 10:30] LABS: BASO % 0.5 % (0-2.0); EOS % 2.1 % (0-4.5); HEMATOCRIT 35.6 % (32.4-45.2); HEMOGLOBIN 12.3 GM/dL (10.7-15.3); LYMPH % 21.9 % (8-40); MCH 33.5 pg (25.7-33.7); MCHC 34.6 g/dl (32.0-36.0); MEAN CELL VOLUME 96.8 fl (80-96); MEAN PLT VOLUME 8.3 fl (7.5-11.1); MONO % 13.8 % (3.8-10.2); NEUT % 61.7 % (42.8-82.8); PLATELET COUNT 167 10^3/uL (134-434); RBC 3.68 M/mm3 (3.60-5.2); RDW 14.3 % (11.6-15.6); WHITE BLOOD COUNT 6.3 K/mm3 (4.0-10.0)
[2023-03-04] MEDS ORDERED: ACETAMINOPHEN 325 MG TABLET (FP) PO PRN (21:25)
[2023-03-04] MEDS ORDERED: AMITRIPTYLINE HCL 10 MG TABLET PO SCH (22:00)
== END 2023-03-04 10:21 | disposition home or self-care (01) ==
LOC: FER 13:17 → FM/S 16:54
PROVIDERS: ADMIT Internal Medicine; ATTEND Internal Medicine
PROC: 3E033NZ Introduction of Analgesics, Hypnotics, Sedatives into Peripheral Vein, Percutaneous Approach (ICD-10-PCS; principal; 2023-03-03)
PROC: 3E0337Z Introduction of Electrolytic and Water Balance Substance into Peripheral Vein, Percutaneous Approach (ICD-10-PCS; 2023-03-03)
DX: R55 Syncope and collapse (principal); E83.42 Hypomagnesemia; I45.81 Long QT syndrome; I10 Essential (primary) hypertension; E78.5 Hyperlipidemia, unspecified; B19.20 Unspecified viral hepatitis C without hepatic coma
CPT/HCPCS: 36415; 70450-TC; 70486-TC; 71045-TC-FY; 72125-TC; 80048; 80053; 81003; 82550; 83735; 84100; 84443; 84484; 85025; 85027; 85610; 85730; 87086; 93005; 96361; 96365; 96375; 96376; 99285-25; C9803-CS; G0378; U0003; U0005

== ENCOUNTER 2024-04-30 21:18 | Observation (INO) | payer OTHER ==
[2024-04-30 21:27] VITALS: BMI 25.6
[2024-04-30] MEDS ORDERED: PANTOPRAZOLE SODIUM 40 MG/100 ML BAG IVPB ONE (23:00)
[2024-04-30] MEDS ORDERED: ONDANSETRON 4 MG/2 ML VIAL ONE (23:00)
[2024-04-30] MEDS: SODIUM CHLORIDE 1,000 ML IV SCH (23:22)
[2024-04-30] MEDS: PANTOPRAZOLE SODIUM 40 MG in SODIUM CHLORIDE 100 ML IVPB ONE (23:22)
[2024-04-30] MEDS: ONDANSETRON 4 MG/2 ML VIAL IVPUSH ONE (23:22)
[2024-04-30 23:30] LABS: BASO % 0.7 % (0-2.0); EOS % 0.1 % (0-4.5); HEMATOCRIT 35.5 % (32.4-45.2); HEMOGLOBIN 12.2 GM/dL (10.7-15.3); MCHC 34.3 g/dl (32.0-36.0); MEAN CELL VOLUME 102.1 fl (80-96); MEAN PLT VOLUME 7.2 fl (7.5-11.1); MONO % 11.4 % (3.8-10.2); NEUT % 72.8 % (42.8-82.8); PLATELET COUNT 202 10^3/uL (134-434); RBC 3.48 M/mm3 (3.60-5.2); WHITE BLOOD COUNT 6.8 K/mm3 (4.0-10.0)
[2024-04-30 23:37] LABS: INR 1.02 (0.83-1.09); PROTHROMBIN TIME (PATIENT) 11.5 SEC (9.7-13.0)
[2024-04-30 23:38] LABS: POTASSIUM 3.8 mmol/L (3.5-5.1)
[2024-04-30 23:39] LABS: ACTIVATED PTT 30.7 SECONDS (25.2-36.5)
[2024-04-30 23:40] LABS: CALCIUM 8.9 mg/dL (8.5-10.1)
[2024-04-30 23:41] LABS: ALBUMIN 3.5 g/dl (3.4-5.0); BLOOD UREA NITROGEN 12.6 mg/dL (7-18); MAGNESIUM 1.1 mg/dL (1.8-2.4)
[2024-04-30 23:43] LABS: CREATININE 0.8 mg/dL (0.55-1.3)
[2024-04-30 23:44] LABS: PHOSPHOROUS 1.8 mg/dL (2.5-4.9)
[2024-04-30 23:45] LABS: BILIRUBIN,TOTAL 2.4 mg/dL (0.2-1); TOT PROT 7.1 g/dl (6.4-8.2)
[2024-05-01] MEDS: ZINC OXIDE 20% TOPICAL OINTMENT 30 GM TUBE TP ONE (00:48)
[2024-05-01] MEDS ORDERED: MAGNESIUM SULFATE IN WATER 2 GM/50 ML IVPB IVPB ONE ×3 (01:03→04:32)
[2024-05-01] MEDS: MAGNESIUM SULF 50% (8.12 MEQ/2 ML-1 GM VIAL) IVPB ONE (01:27)
[2024-05-01] MEDS: NAPH,MB-DB/K PH,MBDB POWDER PACKET PO ONE (02:26)
[2024-05-01] MEDS: MAGNESIUM 2GM/50ML STERILE WATER IVPB IVPB ONE (04:18)
[2024-05-01] MEDS: NAPH,MB-DB/K PH,MBDB POWDER PACKET PO SCH (04:19)
[2024-05-01] MEDS ORDERED: NAPH,MB-DB/K PH,MBDB POWDER PACKET ONE ×2 (05:06→06:55)
[2024-05-01 06:24] LABS: HEMATOCRIT 33.6 % (32.4-45.2); HEMOGLOBIN 11.3 GM/dL (10.7-15.3); MCH 34.7 pg (25.7-33.7); MCHC 33.6 g/dl (32.0-36.0); MEAN CELL VOLUME 103.4 fl (80-96); MEAN PLT VOLUME 7.8 fl (7.5-11.1); PLATELET COUNT 178 10^3/uL (134-434); RBC 3.25 M/mm3 (3.60-5.2); RDW 14.2 % (11.6-15.6); WHITE BLOOD COUNT 6.8 K/mm3 (4.0-10.0)
[2024-05-01 06:42] LABS: POTASSIUM 3.6 mmol/L (3.5-5.1)
[2024-05-01 06:44] LABS: CALCIUM 8.3 mg/dL (8.5-10.1)
[2024-05-01 06:45] LABS: ALBUMIN 3.2 g/dl (3.4-5.0); BLOOD UREA NITROGEN 10.4 mg/dL (7-18); MAGNESIUM 3.3 mg/dL (1.8-2.4)
[2024-05-01 06:48] LABS: CREATININE 0.8 mg/dL (0.55-1.3); PHOSPHOROUS 1.7 mg/dL (2.5-4.9)
[2024-05-01 06:49] LABS: BILIRUBIN,TOTAL 2.3 mg/dL (0.2-1); TOT PROT 6.4 g/dl (6.4-8.2)
[2024-05-01] MEDS ORDERED: [UNRECOGNIZED DRUG - OTHER] PO SCH (07:30)
[2024-05-01] MEDS ORDERED: CYANOCOBALAMIN PO SCH (07:30)
[2024-05-01] MEDS: INSULIN ASPART SLIDING SCALE (NOVOLOG) 1 VIAL SQ SCH (07:30)
[2024-05-01] MEDS ORDERED: chlordiazePOXIDE HCL 25 MG CAPSULE PO PRN (08:19)
[2024-05-01] MEDS: chlordiazePOXIDE HCL 25 MG CAPSULE PO ONE (08:30)
[2024-05-01] MEDS ORDERED: chlordiazePOXIDE HCL 25 MG CAPSULE ONE (08:30)
[2024-05-01] MEDS ORDERED: HYDROCHLOROTHIAZIDE 12.5 MG CAPSULE (FP) PO SCH (10:00)
[2024-05-01] MEDS: SODIUM PHOSPHATE - 15 MM in SODIUM CHLORIDE 250 ML IVPB ONE (16:56)
[2024-05-01] MEDS: FOLIC ACID 1 MG TABLET (FP) PO SCH (18:41)
[2024-05-01] MEDS: METOPROLOL TARTRATE 50 MG TABLET (FP) PO SCH (18:41)
[2024-05-01] MEDS: LOSARTAN POTASSIUM 50 MG TABLET PO SCH (18:41)
[2024-05-01] MEDS: CHOLECALCIFEROL (VIT D3) 1,000 UNIT (25 MCG) TABLET PO SCH (18:42)
[2024-05-01] MEDS: THIAMINE 100 MG TABLET PO SCH (18:42)
[2024-05-01] MEDS: CYANOCOBALAMIN 1,000 MCG TABLET (FP) PO SCH (18:42)
[2024-05-01] MEDS: MAGNESIUM OXIDE 400 MG TABLET (FP) PO SCH (18:43)
[2024-05-01] MEDS: PANTOPRAZOLE SODIUM 40 MG VIAL IVPUSH SCH (18:43)
[2024-05-01] MEDS: PANTOPRAZOLE SODIUM 160 MG in SODIUM CHLORIDE 290 ML IVPB SCH (22:03)
[2024-05-02 08:02] LABS: HEMATOCRIT 30.9 % (32.4-45.2); HEMOGLOBIN 10.5 GM/dL (10.7-15.3); MCH 35.2 pg (25.7-33.7); MCHC 33.9 g/dl (32.0-36.0); MEAN CELL VOLUME 103.8 fl (80-96); MEAN PLT VOLUME 8.4 fl (7.5-11.1); PLATELET COUNT 154 10^3/uL (134-434); RBC 2.98 M/mm3 (3.60-5.2); RDW 14.2 % (11.6-15.6); WHITE BLOOD COUNT 5.6 K/mm3 (4.0-10.0)
[2024-05-02 08:06] LABS: INR 0.99 (0.83-1.09); PROTHROMBIN TIME (PATIENT) 11.4 SEC (9.7-13.0)
[2024-05-02 08:16] LABS: POTASSIUM 3.6 mmol/L (3.5-5.1)
[2024-05-02 08:17] LABS: CALCIUM 8.2 mg/dL (8.5-10.1)
[2024-05-02 08:18] LABS: BLOOD UREA NITROGEN 5.1 mg/dL (7-18)
[2024-05-02 08:19] LABS: ALBUMIN 3.2 g/dl (3.4-5.0); MAGNESIUM 1.6 mg/dL (1.8-2.4)
[2024-05-02 08:21] LABS: CREATININE 0.6 mg/dL (0.55-1.3)
[2024-05-02 08:22] LABS: TOT PROT 5.9 g/dl (6.4-8.2)
[2024-05-02 12:06] VITALS: BP 130/72; PULSE 90; RESP 18; TEMP 98.1
[2024-05-04] MEDS ORDERED: chlordiazePOXIDE HCL 10 MG CAPSULE PO PRN
== END 2024-05-02 15:23 | disposition left against medical advice (07) ==
LOC: JER 21:18 → JERBED 05-01 00:05 → J4W 05-01 13:24
PROVIDERS: ADMIT Internal Medicine; ATTEND Internal Medicine
PROC: 3E033GC Introduction of Other Therapeutic Substance into Peripheral Vein, Percutaneous Approach (ICD-10-PCS; principal; 2024-05-01)
PROC: 3E033GC Introduction of Other Therapeutic Substance into Peripheral Vein, Percutaneous Approach (ICD-10-PCS; 2024-05-01)
DX: K92.0 Hematemesis (principal); F10.239 Alcohol dependence with withdrawal, unspecified; K70.10 Alcoholic hepatitis without ascites; N17.9 Acute kidney failure, unspecified; I10 Essential (primary) hypertension; G25.0 Essential tremor; E78.5 Hyperlipidemia, unspecified; Z90.49 Acquired absence of other specified parts of digestive tract; K76.0 Fatty (change of) liver, not elsewhere classified; G89.29 Other chronic pain; M54.50 Low back pain, unspecified; K57.90 Diverticulosis of intestine, part unspecified, without perforation or abscess without bleeding; K44.9 Diaphragmatic hernia without obstruction or gangrene; Z86.19 Personal history of other infectious and parasitic diseases; Z87.891 Personal history of nicotine dependence
CPT/HCPCS: 36415; 71045-TC-FY; 74177-TC; 76705-TC; 80048; 80053; 80076; 82248; 82550; 82962; 83690; 83735; 84100; 84484; 85025; 85027; 85610; 85730; 86704; 86708; 86803; 86850; 86900; 86901; 87340; 87517; 87522; 93005; 93010; 96361; 96365; 96375; 96376; 99285-25; G0378; Q9967

== ENCOUNTER 2025-04-14 15:15 | Inpatient (IN) | payer OTHER, MEDICARE ==
[2025-04-14 15:48] VITALS: BMI 24.3
[2025-04-14] MEDS: SODIUM CHLORIDE 0.9% 1000 ML INFUS.BAG IV STA (16:14)
[2025-04-14 16:22] LABS: MCHC 35.3 g/dl (32.2-35.5); MEAN CELL VOLUME 90.6 fl (79.4-94.8); MEAN PLT VOLUME 9.7 fl (9.4-12.3); RDW 13.0 % (12.4-16.6)
[2025-04-14 16:23] LABS: BG HCT 45.0 % (32.4-45.2); VENOUS BASE EXCESS -6.6 mmol/L (-2-2); VENOUS O2 SATURATION 95.4 % (70-80); VENOUS PCO2 34.8 mmHg (38-52); VENOUS PH 7.338 (7.310-7.410)
[2025-04-14] MEDS ORDERED: ACETAMINOPHEN INJECTION 100 ML ONE (16:40)
[2025-04-14 16:43] LABS: CO2 20.0 mmol/L (21-32); GLUCOSE,RANDOM 160.0 mg/dL (74-106)
[2025-04-14 16:46] LABS: CREATININE 1.6 mg/dL (0.55-1.3); SGOT/AST 38.0 U/L (15-37); SGPT/ALT 19.0 U/L (13-61)
[2025-04-14 16:48] LABS: INR 1.07 (0.83-1.09); PROTHROMBIN TIME (PATIENT) 11.8 SEC (9.7-13.0); TOT PROT 6.7 g/dl (6.4-8.2)
[2025-04-14] MEDS ORDERED: PIPERACILLIN/TAZOB 4.5 GM 4.5 GM/100 ML BAG IVPB ONE (16:48)
[2025-04-14] MEDS ORDERED: VANCOMYCIN 1 GM PREMIX (F) 1 GM/200 ML BAG ONE (16:48)
[2025-04-14 16:49] LABS: ALK PHOS 77.0 U/L (45-117)
[2025-04-14] MEDS: PIPERACILLIN/TAZOB 4.5 GM 4.5 GM in DEXTROSE 5%-WATER 100 ML IVPB ONE (16:49)
[2025-04-14] MEDS: ACETAMINOPHEN 1000 MG/100 ML BAG IVPB ONE (16:49)
[2025-04-14 16:50] LABS: ACTIVATED PTT 29.9 SECONDS (25.2-36.5)
[2025-04-14 17:11] LABS: LACTIC ACID 3.3 mmol/L (0.4-2.0)
[2025-04-14] MEDS: MAGNESIUM SULFATE IN WATER 2 GM/50 ML IVPB IVPB ONE (18:10)
[2025-04-14] MEDS ORDERED: MAGNESIUM SULFATE IN WATER 2 GM/50 ML IVPB IVPB ONE (18:10)
[2025-04-14] MEDS: VANCOMYCIN 1,000 MG in DEXTROSE 5%-WATER - 250 ML IVPB ONE (18:23)
[2025-04-14] MEDS ORDERED: FENTANYL CITRATE/PF 50 MCG/ML VIAL ONE (18:52)
[2025-04-14 18:53] LABS: HCV DIAGNOSTIC IN-HOUSE W/RFLX REACTIVE (NONREACTIVE)
[2025-04-14 18:56] LABS: URINE APPEARANCE CLEAR; URINE BILIRUBIN NEGATIVE (NEGATIVE); URINE COLOR YELLOW; URINE GLUCOSE (UA) NEGATIVE (NEGATIVE); URINE KETONE 2+ (NEGATIVE); URINE LEUK ESTERASE NEGATIVE (NEGATIVE); URINE NITRITE NEGATIVE (NEGATIVE); URINE PROTEIN TRACE (NEGATIVE); URINE UROBILINOGEN 1.0 mg/dL (0.2-1.0)
[2025-04-14] MEDS ORDERED: HYDROmorphone HCL CARPU-JECT 2 MG/1 ML DISP.SYRIN ONE (20:11)
[2025-04-14] MEDS ORDERED: PANTOPRAZOLE SODIUM 40 MG/100 ML BAG IVPB ONE (20:22)
[2025-04-14] MEDS: PANTOPRAZOLE SODIUM 40 MG VIAL IVPUSH ONE (20:31)
[2025-04-14] MEDS ORDERED: FAMOTIDINE 20 MG/50 ML IVPB 20 MG/50 ML MG IVPB ONE (21:49)
[2025-04-14] MEDS: FAMOTIDINE 20 MG/50 ML IVPB 20 MG/50 ML MG IVPB ONE (21:50)
[2025-04-15] MEDS ORDERED: ACETAMINOPHEN 1000 MG/100 ML BAG IVPB PRN ×2 (01:37→08:11)
[2025-04-15] MEDS ORDERED: MORPHINE SULFATE 2 MG/ML SYRINGE IVPUSH PRN (01:37)
[2025-04-15] MEDS ORDERED: HEPARIN NA (PORCINE) 5,000 UNITS/ML 1ML VIAL ONE (05:32)
[2025-04-15] MEDS: HEPARIN NA (PORCINE) 5,000 UNITS/ML 1ML VIAL SQ SCH (05:41)
[2025-04-15] MEDS: SODIUM CHLORIDE 1,000 ML IV SCH ×2 (05:41→06:13)
[2025-04-15] MEDS ORDERED: PANTOPRAZOLE 40 MG TABLET PO ONE (06:02)
[2025-04-15] MEDS: PANTOPRAZOLE 40 MG TABLET PO SCH (06:12)
[2025-04-15 06:29] LABS: MCHC 34.1 g/dl (32.2-35.5); MEAN CELL VOLUME 92.0 fl (79.4-94.8); MEAN PLT VOLUME 10.0 fl (9.4-12.3); RDW 13.2 % (12.4-16.6)
[2025-04-15 07:01] LABS: CO2 24 mmol/L (21-32); GLUCOSE,RANDOM 102 mg/dL (74-106)
[2025-04-15 07:04] LABS: CREATININE 1.3 mg/dL (0.55-1.3); SGOT/AST 37 U/L (15-37); SGPT/ALT 19 U/L (13-61)
[2025-04-15 07:06] LABS: TOT PROT 5.9 g/dl (6.4-8.2)
[2025-04-15 07:07] LABS: ALK PHOS 69 U/L (45-117)
[2025-04-15] MEDS: METOPROLOL TARTRATE 25 MG TABLET (FP) PO SCH (09:56)
[2025-04-15] MEDS: FAMOTIDINE 20 MG TABLET PO SCH ×2 (09:58→22:55)
[2025-04-15] MEDS ORDERED: DOCUSATE SODIUM 100 MG CAPSULE (FP) PO ONE (10:06)
[2025-04-15] MEDS ORDERED: LIDOCAINE 5% TOPICAL PATCH ONE (10:07)
[2025-04-15] MEDS: LIDOCAINE 5% TOPICAL PATCH TP SCH (10:08)
[2025-04-15] MEDS: DOCUSATE SODIUM 100 MG CAPSULE (FP) PO SCH (10:09)
[2025-04-15] MEDS: ACETAMINOPHEN 1000 MG/100 ML BAG IVPB SCH (13:39)
[2025-04-15 16:26] LABS: COCAINE, UR NEGATIVE (NEGATIVE); METHADONE, UR NEGATIVE (NEGATIVE); OPIATES, URI NEGATIVE (NEGATIVE); PHENCYCLIDINE,URINE NEGATIVE (NEGATIVE); URINE BENZODIAZEPINES NEGATIVE (NEGATIVE)
[2025-04-15] MEDS: LACTATED RINGERS SOLUTION 1,000 ML/1,000 ML INFUS.BAG IV SCH (16:33)
[2025-04-15 16:38] LABS: URINE AMPHETAMINES NEGATIVE (NEGATIVE); URINE BARBITURATES NEGATIVE (NEGATIVE)
[2025-04-15] MEDS ORDERED: POLYETHYLENE GLYCOL (HEALTHYLAX) 3350 17 GM PACKET PO PRN (18:23)
[2025-04-15] MEDS: LIDOCAINE PATCH REMOVAL MC SCH (23:44)
[2025-04-16] MEDS: SODIUM CHLORIDE 1,000 ML IV SCH ×2 (09:11→14:58)
[2025-04-16] MEDS: ONDANSETRON 4 MG/2 ML VIAL IVPUSH PRN (09:20)
[2025-04-16 11:06] LABS: MCHC 34.2 g/dl (32.2-35.5); MEAN CELL VOLUME 93.8 fl (79.4-94.8); MEAN PLT VOLUME 9.9 fl (9.4-12.3); RDW 13.4 % (12.4-16.6)
[2025-04-16 11:31] LABS: CO2 22.0 mmol/L (21-32); GLUCOSE,RANDOM 133.0 mg/dL (74-106)
[2025-04-16 11:34] LABS: CREATININE 1.3 mg/dL (0.55-1.3)
[2025-04-16] MEDS: TRIMETHOBENZAMIDE HCL 200MG/2ML INJ IM ONE (12:12)
[2025-04-16 17:50] LABS: HIV INTERPRETATION NEGATIVE (NEGATIVE)
[2025-04-16] MEDS: MAGNESIUM SULFATE IN WATER 2 GM/50 ML IVPB IVPB ONE (20:01)
[2025-04-17 08:03] LABS: ABSOLUTE IMMATURE GRANULOCYTES 0.04 x10^3/uL (0.0-0.031); BASOPHILS # 0.03 x10^3/uL (0.01-0.08); EOSINOPHIL % 1.4 % (0.7-5.8); EOSINOPHILS # 0.11 x10^3/uL (0.04-0.36); MCHC 34.0 g/dl (32.2-35.5); MEAN CELL VOLUME 93.0 fl (79.4-94.8); MEAN PLT VOLUME 9.7 fl (9.4-12.3); MONOCYTE # 0.76 x10^3/uL (0.24-0.86); MONOCYTE % 9.8 % (4.7-12.5); RDW 13.2 % (12.4-16.6)
[2025-04-17 08:31] LABS: CO2 25.0 mmol/L (21-32); GLUCOSE,RANDOM 108.0 mg/dL (74-106)
[2025-04-17 08:34] LABS: CREATININE 1.0 mg/dL (0.55-1.3); SGOT/AST 36.0 U/L (15-37); SGPT/ALT 17.0 U/L (13-61)
[2025-04-17 08:36] LABS: TOT PROT 5.7 g/dl (6.4-8.2)
[2025-04-17 08:37] LABS: ALK PHOS 70.0 U/L (45-117)
[2025-04-18 07:57] VITALS: BP 136/80; PULSE 88; RESP 18; TEMP 98.3
[2025-04-18] MEDS ORDERED: PANTOPRAZOLE 40 MG TABLET PO SCH (10:00)
[2025-04-18] MEDS ORDERED: ENOXAPARIN NA (PORCINE) 40 MG/0.4 ML DISP.SYRIN SQ SCH (10:00)
== END 2025-04-18 08:51 | disposition left against medical advice (07) | DRG 552 ==
LOC: JER 15:15 → JERBED 22:44 → J4W 04-15 17:39
PROVIDERS: ADMIT Student in an Organized Health Care Education/Training Program; ATTEND Internal Medicine
DX: S32.029A Unspecified fracture of second lumbar vertebra, initial encounter for closed fracture (principal); E46 Unspecified protein-calorie malnutrition; E87.1 Hypo-osmolality and hyponatremia; M62.82 Rhabdomyolysis; E87.20 Acidosis, unspecified; I10 Essential (primary) hypertension; S32.039A Unspecified fracture of third lumbar vertebra, initial encounter for closed fracture; K21.9 Gastro-esophageal reflux disease without esophagitis; E83.42 Hypomagnesemia; R55 Syncope and collapse; Z68.24 Body mass index [BMI] 24.0-24.9, adult; W19.XXXA Unspecified fall, initial encounter; Y93.89 Activity, other specified; Y92.009 Unspecified place in unspecified non-institutional (private) residence as the place of occurrence of the external cause; Y99.8 Other external cause status; E86.0 Dehydration; F10.10 Alcohol abuse, uncomplicated; R29.6 Repeated falls; R11.0 Nausea
CPT/HCPCS: 0241U-QW; 36415; 70450-TC; 71045-TC-FY; 71250-TC; 72125-TC; 72128-TC; 72131-TC; 72148-TC; 72170-TC-FY; 73030-TC-LT-FY; 73070-TC-LT-FY; 73200-TC-RT; 73502-TC-LT-FY; 74176-TC; 80048; 80053; 80307; 81003; 82550; 82553; 82607; 82746; 82803; 83605; 83735; 84100; 84443; 84484; 85025; 85027; 85610; 85730; 86803; 86850; 86900; 86901; 87040; 87086; 87389; 87522; 93005; 93010; 93306-TC; 97116-GP; 97162-GP; 99285-25